=== PATIENT | female | born 1940 ===

== ENCOUNTER 2024-07-11 13:59 | Inpatient (IN) | payer MEDICARE, MEDICAID, SELFPAY ==
[2024-07-11] VITALS (12 sets, daily range): BP systolic 131–153; BP diastolic 48–70; PULSE 34–56; RESP 14–20; TEMP 37.6–38.8; O2SAT 88–99; BMI 17.1
--- NOTE | ~2024-07-11 | XR_ITS ---
EXAMINATION: XR CHEST CLINICAL INFORMATION: ams COMPARISON: None available. TECHNIQUE: Frontal view of the chest was obtained. FINDINGS: Poor inspiration. No consolidation, pleural effusion or pneumothorax. Cardiomediastinal silhouette demonstrates calcified plaque Arctic arch. Multilevel thoracic stenosis. Osteopenia versus cirrhosis. Cortical irregularity in the lateral aspect of the right second and sixth ribs likely old rib fractures. There is a degenerative changes in the right acromioclavicular joint. XR/XR chest 1V IMPRESSION: No acute airspace disease. Electronically signed by: Mauro Oneill MD 07/11/2024 03:44 PM EDT
--- NOTE | ~2024-07-11 | CT_ITS ---
CLINICAL HISTORY: fall CT cervical spine without contrast. COMPARISON: None FINDINGS: Rightward curvature of the lower cervical and upper thoracic spine. Vertebral body heights are maintained. Skull base and intracranial structures appear normal. Calcified plaque present at the carotid bulbs bilaterally. C2-C3: Facet joint arthrosis. Mild right neural foraminal narrowing. C3-C4: Uncovertebral joint hypertrophy. Facet joint arthrosis. Mild left neural foraminal narrowing. C4-C5: Uncovertebral joint hypertrophy. Facet joint arthrosis. Severe right and mild left neural foraminal narrowing. C5-C6: Fusion of the posterior elements. Mild left neural foraminal narrowing. C6-C7: Anterior marginal osteophytes. Facet joint arthrosis. Uncovertebral joint hypertrophy. Moderate left and mild right neural foraminal narrowing. IMPRESSION: 1. No evidence of acute injury to the cervical spine. This document has been electronically signed by: Benoit Aguilar MD on 07/11/2024 18:20:16
--- NOTE | ~2024-07-11 | CT_ITS ---
CLINICAL HISTORY: ams CT head without contrast. COMPARISON: None FINDINGS: The visualized paranasal sinuses are clear. The mastoid air cells are clear. No calvarial fracture. Atherosclerotic intracranial vasculature. No evidence for mass or mass effect. No intracranial hemorrhage or abnormal extra-axial fluid collection. Basal ganglia mineralization on the left. The ventricles are proportional with the degree of moderate global cerebral volume loss without evidence of hydrocephalus. Basilar cisterns are patent. There are periventricular areas of low attenuation compatible with moderate white matter small vessel disease. Posterior fossa appears unremarkable. IMPRESSION: 1. No acute intracranial findings. This document has been electronically signed by: Benoit Aguilar MD on 07/11/2024 18:15:06
--- NOTE | 2024-07-11 14:10 | ECG_ITS ---
Test Reason : ams Blood Pressure : */* mmHG Vent. Rate : 40 BPM Atrial Rate : 271 BPM P-R Int : * ms QRS Dur : 70 ms QT Int : 532 ms P-R-T Axes : 87 40 -63 degrees QTcB Int : 433 ms Atrial flutter with slow ventricular response cannot exclude old Septal infarct , age undetermined Abnormal ECG No previous ECGs available Referred By: Miguel Ángel Menezes Electronically Signed By: SIMON LEDESMA
--- NOTE | 2024-07-11 14:13 | ED.AMS ---
HPI - Altered Mental Status General Chief Complaint: Altered Mental Status Stated Complaint: PER LONG TERM AMS Time Seen by Provider: 07/11/24 14:07 Source: EMS Mode of arrival: EMS Limitations: altered mental status History of Present Illness HPI narrative: 83-year-old female past medical history of AFib on Eliquis altered mental status unable to follow commands or speak at baseline coming from a long term for failure to thrive not eating not drinking at the long term per the paperwork patient is a [place] does not have a family member to contact they are working about changing her code status was currently a full code. Patient unable to give history at baseline but is apparently worse today found to be bradycardic which is her baseline as well as periods of apnea per EMS. Patient came in being bagged by EMS on arrival patient is breathing on her own anymore from 12-27 breaths a minute but are shallow. Patient on the monitor is bradycardic to 45 blood pressure is stable MD complaint: altered mental status Related Data Allergies Allergy/AdvReac Type Severity Reaction Status Date / Time hydromorphone Allergy Unknown Verified 07/11/24 14:10 oxycodone Allergy Unknown Verified 07/11/24 14:10 roflumilast Allergy Unknown Verified 07/11/24 14:10 Review of Systems Review of Systems: Yes Unobtainable due to mental condition and Unobtainable due to mental status PMFSH Social History Social History Unable to assess alcohol history related to: Unable to respond Use of substances other than those prescribed or required for medical reasons: Unable to respond Advance Directives: Yes Advance Directives on File: Yes Advance Directives Date on File: 07/11/24 Do you have a plan to hurt others: No Plan Physical Exam ED Vital Signs: Vital Signs - 24 hr 07/11/24 14:06 07/11/24 14:27 07/11/24 14:45 Temperature 101.9 F H Pulse Rate 41 L 50 Respiratory Rate 14 16 Blood Pressure 151/66 H 149/59 H Pulse Oximetry 97 96 90 L Oxygen Delivery Method Room Air Room Air Room Air Oxygen Flow Rate 07/11/24 14:46 07/11/24 15:18 07/11/24 15:23 Temperature Pulse Rate 39 L 34 L Respiratory Rate 18 14 Blood Pressure 147/55 H 134/54 L Pulse Oximetry 97 97 96 Oxygen Delivery Method Nasal Cannula Nasal Cannula Nasal Cannula Oxygen Flow Rate 2 2 2 07/11/24 15:29 07/11/24 15:59 07/11/24 16:59 Temperature 99.6 F Pulse Rate 56 37 L 37 L Respiratory Rate 18 16 16 Blood Pressure 134/54 L 149/54 H 153/52 H Pulse Oximetry 97 97 98 Oxygen Delivery Method Nasal Cannula Nasal Cannula Nasal Cannula Oxygen Flow Rate 2 2 2 BMI result Body Mass Index 17.1 General: Thin minimally responsive only to painful stimuli which is close to baseline for the patient HEENT: Normocephalic atraumatic Neck: No signs of JVD, no masses no tenderness or lymphadenopathy Cardiovascular: Regular rate and rhythm Respiratory: Clear to auscultation bilaterally Abdomen: Soft nontender no masses Extremities: Normal pedal pulses no signs of edema Skin: Dry warm no rashes Back: No tenderness full ROM Course Course Course Narrative: Patient remained bradycardic did drop down to 39 was given 0.5 of atropine with good response into the 50s. Patient's blood pressure has been stable the entire time I did touch base with Dr. Card who agrees there was nothing emergent in the patient should be safe with the floors his blood pressures remained stable during the entire visit here labs still pending at this time Reevaluation(s) Reevaluation #1: Patient with hypernatremia on labs and labs kept asking for re-collect and we will admit. Reevaluation #2: Free water calculator wants 60 ml a hour of D5 free water. 60 mg which was ordered I did discuss the case with hospitalist as well as the ICU as the patient is stable otherwise and the bradycardia is chronic he felt the patient could go to the floor both in ever being that high is understandable if ICU has to. Admit Dr. Medina's happyD to admit if that is the case.Dr. Vallejo was consulted and we all agreed patient was safe for the floor. Medications Administered Generic Name Dose Route Start Last Admin Trade Name Freq PRN Reason Stop Dose Admin Sodium Chloride 1,000 mls @ 999 mls/hr 07/11/24 16:30 07/11/24 17:08 Ns IV 07/11/24 17:30 Not Given .Q1H1M JACQUE Dextrose 1,000 mls @ 60 mls/hr 07/11/24 17:00 07/11/24 17:14 D5w IVCONT 60 mls/hr .[id number] JACQUE Administration Discontinued Medications Generic Name Dose Route Start Last Admin Trade Name Veronika PRN Reason Stop Dose Admin Atropine Sulfate 0.5 mg 07/11/24 15:16 07/11/24 15:21 Atropine Sulfate 1 Mg/10 Ml Syringe IVPUSH 07/11/24 15:17 0.5 mg ONCE ONE Administration Ceftriaxone Sodium 1 gm 07/11/24 16:24 07/11/24 17:14 Ceftriaxone Sodium 1 Gm Vial IVPUSH 07/11/24 16:25 1 gm ONCE ONE Administration Sodium Chloride 1,000 mls @ 999 mls/hr 07/11/24 14:15 07/11/24 15:42 Ns IV 07/11/24 15:15 Infused .Q1H1M JACQUE Infusion Acetaminophen 1,000 mg in 100 mls @ 400 mls/hr 07/11/24 14:15 07/11/24 14:42 Ofirmev IV 07/11/24 14:29 Infused ONCE ONE Infusion Sodium Chloride 1,000 mls @ 999 mls/hr 07/11/24 15:45 07/11/24 17:00 Ns IV 07/11/24 16:45 Infused .Q1H1M JACQUE Infusion Medical Decision Making Medical Decision Making [facility] Narrative: Patient is on Xarelto I will send for CT head and neck patient is very altered concerned that has not been eating or drinking could have hypernatremia check labs EKG and reassess. Differential Diagnosis Differential Diagnoses: The differential diagnosis associated with the presentation includes Electrolyte abnormality dehydration hypernatremia COVID flu RSV intracranial hemorrhage Lab Data [facility] Lab Attestation statement: I reviewed the patient's lab results. 07/11/24 14:57 07/11/24 15:59 Labs: Lab Results 07/11/24 07/11/24 07/11/24 Range/Units 14:55 14:56 14:57 WBC 6.9 (4.8-10.8) X10*3/uL RBC 5.23 (4.20-5.50) X10*6/uL Hgb 16.8 H (12.0-16.0) g/dl Hct 52.7 H (37.0-47.0) % MCV 100.8 H (80.0-98.0) fL MCH 32.1 (27.0-33.0) pg MCHC 31.9 (31.0-35.0) g/dl RDW 14.1 (11.0-16.0) % Plt Count 115 L (160-400) X10*3/uL MPV 13.0 H (9.4-12.3) fL Immature Gran % (Auto) 0.4 (0.0-0.4) % Neut % (Auto) 75.4 H (45-73) % Lymph % (Auto) 15.9 L (20-40) % [place] % (Auto) 7.7 (2-11) % Eos % (Auto) 0.3 (0-4) % Baso % (Auto) 0.3 (0-2) % Lymph # (Auto) 1.1 L (1.2-4.9) X10*3/uL [place] # (Auto) 0.5 (0.1-1.2) X10*3/uL Eos # (Auto) 0.0 (0.0-0.4) X10*3/uL Baso # (Auto) 0.0 (0.0-0.2) X10*3/uL Abs Immat Gran (auto) 0.03 (0.00-0.03) X10*3/uL Absolute Neuts (auto) 5.2 (2.0-8.3) x10*3/uL Absolute Nucleated RBC 0.000 (0.0-0.012) X10*3/uL Nucleated RBC % (auto) 0.0 (0.0-0.2) /100WBC PT 13.6 H (10.9-12.4) SEC INR 1.2 H (0.9-1.1) APTT 22.0 L (26.0-36.8) SEC VBG pH (7.32-7.43) VBG pCO2 mmHg VBG pO2 mmHg VBG HCO3 (22-26) mmol/L VBG O2 Saturation % VBG Base Excess mmol/L Sodium (135-145) mmol/L Potassium (3.3-5.1) mmol/L Chloride (96-108) mmol/L Carbon Dioxide (22-29) mmol/L Anion Gap (12-20) BUN (9-16) mg/dL Creatinine (0.5-1.4) mg/dL Estim Creat Clear Calc Estimated GFR Random Glucose (60-115) mg/dL Lactic Acid (0.5-2.0) mmol/L Calcium (8.4-10.2) mg/dL Magnesium (1.6-2.6) mg/dL Total Bilirubin (0.0-1.0) mg/dL Direct Bilirubin (0.0-0.5) mg/dL AST (5-31) U/L ALT (0-31) U/L Total Creatine Kinase (26-140) U/L Troponin I High Sens (<3.5-17.0) ng/L Total Protein (6.5-8.0) g/dL Albumin (3.5-5.0) g/dL Lipase (8-78) U/L TSH Cancelled Urine Color Urine Appearance Urine pH (5.0-9.0) Ur Specific Elizabeth (1.005-1.025) Urine Protein (Neg-Trace) mg/dL Urine Glucose (UA) (Negative) mg/dL Urine Ketones (Negative) mg/dL Urine Blood (Negative) Urine Nitrite (Negative) Ur Leukocyte Esterase (Negative) Urine RBC (0-2) /HPF Urine WBC (0-5) /HPF Ur Squamous Epith Cells (0-2) /HPF Urine Bacteria (None Seen) Hyaline Casts (0-2) /LPF Influenza Type A (PCR) NEGATIVE (Negative) Influenza Type B (PCR) NEGATIVE (Negative) RSV RNA Qual (PCR) NEGATIVE (Negative) SARS-CoV-2 RNA (RT-PCR) NEGATIVE (Negative) Blood Type O Negative Antibody Screen NEGATIVE 07/11/24 07/11/24 07/11/24 Range/Units 15:07 15:59 16:11 WBC (4.8-10.8) X10*3/uL RBC (4.20-5.50) X10*6/uL Hgb (12.0-16.0) g/dl Hct (37.0-47.0) % MCV (80.0-98.0) fL MCH (27.0-33.0) pg MCHC (31.0-35.0) g/dl RDW (11.0-16.0) % Plt Count (160-400) X10*3/uL MPV (9.4-12.3) fL Immature Gran % (Auto) (0.0-0.4) % Neut % (Auto) (45-73) % Lymph % (Auto) (20-40) % [place] % (Auto) (2-11) % Eos % (Auto) (0-4) % Baso % (Auto) (0-2) % Lymph # (Auto) (1.2-4.9) X10*3/uL [place] # (Auto) (0.1-1.2) X10*3/uL Eos # (Auto) (0.0-0.4) X10*3/uL Baso # (Auto) (0.0-0.2) X10*3/uL Abs Immat Gran (auto) (0.00-0.03) X10*3/uL Absolute Neuts (auto) (2.0-8.3) x10*3/uL Absolute Nucleated RBC (0.0-0.012) X10*3/uL Nucleated RBC % (auto) (0.0-0.2) /100WBC PT (10.9-12.4) SEC INR (0.9-1.1) APTT (26.0-36.8) SEC VBG pH 7.51 H (7.32-7.43) VBG pCO2 25 mmHg VBG pO2 47 mmHg VBG HCO3 20 L (22-26) mmol/L VBG O2 Saturation 82.0 % VBG Base Excess -0.3 mmol/L Sodium 165 H* (135-145) mmol/L Potassium 4.8 (3.3-5.1) mmol/L Chloride 132 H (96-108) mmol/L Carbon Dioxide 22 (22-29) mmol/L Anion Gap 16 (12-20) BUN 58 H (9-16) mg/dL Creatinine 1.07 (0.5-1.4) mg/dL Estim Creat Clear Calc 26.3 Estimated GFR 49 Random Glucose 116 H (60-115) mg/dL Lactic Acid 1.6 (0.5-2.0) mmol/L Calcium 10.1 (8.4-10.2) mg/dL Magnesium 2.8 H (1.6-2.6) mg/dL Total Bilirubin 1.0 (0.0-1.0) mg/dL Direct Bilirubin 0.2 (0.0-0.5) mg/dL AST 79 H (5-31) U/L ALT 80 H (0-31) U/L Total Creatine Kinase 394 H (26-140) U/L Troponin I High Sens 39.5 H (<3.5-17.0) ng/L Total Protein 8.3 H (6.5-8.0) g/dL Albumin 3.9 (3.5-5.0) g/dL Lipase 37 (8-78) U/L TSH 0.56 Urine Color Yellow Urine Appearance Clear Urine pH 5.5 (5.0-9.0) Ur Specific Elizabeth >= 1.030 H (1.005-1.025) Urine Protein 100 (2+) H (Neg-Trace) mg/dL Urine Glucose (UA) Negative (Negative) mg/dL Urine Ketones Negative (Negative) mg/dL Urine Blood Small (1+) H (Negative) Urine Nitrite Positive H (Negative) Ur Leukocyte Esterase Small (1+) H (Negative) Urine RBC 11-20 H (0-2) /HPF Urine WBC 21-50 H (0-5) /HPF Ur Squamous Epith Cells 0-2 (0-2) /HPF Urine Bacteria 2+ (None Seen) Hyaline Casts 11-20 (0-2) /LPF Influenza Type A (PCR) (Negative) Influenza Type B (PCR) (Negative) RSV RNA Qual (PCR) (Negative) SARS-CoV-2 RNA (RT-PCR) (Negative) Blood Type Antibody Screen ABG Data Attestation ABG: I personally reviewed and interpreted this ABG as follows: Independent Interpretation I performed an independent interpretation of an: EKG and CT Scan Radiology Impression Discussion of test interpretation with radiology: I have reviewed the radiologist's reading. External Record Review Patient has no previous visits here Critical Care Time Critical Care Time Critical Care Time: Yes Total Critical Care Time: 90 Attestation: Patient altered mental status initially came in being bagged by EMS patient has not been apneic here has been bradycardic but blood pressure has been stable we did try atropine for the heart rate we consulted Cardiology the ICU and hospitalist. We calculated the free water deficit as well as the rate of correction of the hyponatremia and start the patient on D5 free water patient also was found to have UTI and started on antibiotics. Discharge Plan Discharge Clinical Impression: Altered mental status, Dementia, Acute hypernatremia, Acute UTI Patient Disposition: Admitted As Inpatient Print Language: [place]
[2024-07-11] MEDS: 0.9 % Sodium Chloride 1,000 ML 999 ML IV ×2 (14:27→15:42)
[2024-07-11] MEDS: Acetaminophen 1,000 MG/100 ML PIGGYBACK 400 MG IV (14:27)
[2024-07-11 15:06] LABS: MANUAL DIFF FLAG NO
[2024-07-11 15:11] LABS: VBG Base Excess -0.3 mmol/L; VBG HCO3 20 mmol/L (22-26); VBG pCO2 25 mmHg; VBG pH 7.51 (7.32-7.43); VBG pO2 47 mmHg
[2024-07-11 15:12] LABS: Venous Blood Gas Refer to POC result
[2024-07-11 15:14] LABS: INTERNATIONAL NORM RATIO 1.2 (0.9-1.1); Prothrombin Time 13.6 SEC (10.9-12.4)
[2024-07-11 15:17] LABS: Basophils Percent Auto 0.3 % (0-2); Eosinophils Percent Auto 0.3 % (0-4); Hematocrit 52.7 % (37.0-47.0); Hemoglobin 16.8 g/dl (12.0-16.0); Imm Gran Abs Auto 0.03 X10*3/uL (0.00-0.03); Imm Gran Pct Auto 0.4 % (0.0-0.4); Lymphocytes Absolute Auto 1.1 X10*3/uL (1.2-4.9); Lymphocytes Percent Auto 15.9 % (20-40); Mean Corpuscular HGB Conc 31.9 g/dl (31.0-35.0); Mean Corpuscular Hemoglobin 32.1 pg (27.0-33.0); Mean Corpuscular Volume 100.8 fL (80.0-98.0); Monocytes Absolute Auto 0.5 X10*3/uL (0.1-1.2); Monocytes Percent Auto 7.7 % (2-11); Neutrophils Absolute Auto 5.2 x10*3/uL (2.0-8.3); Neutrophils Percent Auto 75.4 % (45-73); Platelet Count 115 X10*3/uL (160-400); Red Blood Count 5.23 X10*6/uL (4.20-5.50); Red Cell Distribution Width 14.1 % (11.0-16.0); White Blood Count 6.9 X10*3/uL (4.8-10.8)
[2024-07-11] MEDS: Atropine Sulfate 1 MG/10 ML SYRINGE 0.5 MG IVPUSH (15:21)
--- NOTE | 2024-07-11 15:24 | PC.NURSE ---
pt remains to be bradycardic but HR continues to decrease to 30s at this time. HR noted to be 34-39bpm. provider notified/aware. medication administered per provider order. effectiveness pending. otherwise vss and up to date. pt remains on 2L via NC at this time. no sob/wob noted. respirations even/unlabored. plan of care ongoing.
--- NOTE | 2024-07-11 15:30 | PC.NURSE ---
HR noted to increase to 56bpm s/p medication administration but noted to immediately to decrease back to 34-38bpm. provider notified/aware.
[2024-07-11 15:51] LABS: Influenza A PCR NEGATIVE (Negative); Influenza B PCR NEGATIVE (Negative); Resp Syncy Virus RNA Qual PCR NEGATIVE (Negative); SARS COV2 PCR INHOUSE NEGATIVE (Negative)
[2024-07-11 16:01] LABS: TSH reflex Free T4 0.56 uIU/mL (0.32-4.0)
--- NOTE | 2024-07-11 16:15 | PC.NURSE ---
straight catheterization performed. 100ml of clear/dark yellow urine noted immediately post output. specimen obtained/sent to lab. pt tolerated well.
[2024-07-11 16:20] LABS: Appearance Urine Clear; Color Urine Yellow; Glucose Urine UA Negative (Negative); Leukocyte Esterase Urine Small (1+) (Negative); Nitrite Urine Positive (Negative); PH 5.5 (5.0-9.0); Specific Gravity - Urine >= 1.030 (1.005-1.025); UMIC TRIGGER UACC YES; Urine Blood Small (1+) (Negative); Urine Ketones Negative (Negative); Urine Protein 100 (2+) mg/dL (Neg-Trace)
[2024-07-11 16:21] LABS: Lactic Acid 1.6 mmol/L (0.5-2.0)
[2024-07-11 16:28] LABS: Troponin-I High Sensitivity 39.5 ng/L (<3.5-17.0)
[2024-07-11 16:37] LABS: Bacteria Urine 2+ (None Seen); Squamous Epithelial Cell Urine 0-2 /HPF (0-2); UACC Culture Trigger YES; WBC Urine 21-50 /HPF (0-5)
[2024-07-11 17:07] LABS: Alanine Aminotransferase 80 U/L (0-31); Albumin Level 3.9 g/dL (3.5-5.0); Anion Gap 16 (12-20); Aspartate Amino Transferase 79 U/L (5-31); Bilirubin Direct 0.2 mg/dL (0.0-0.5); Blood Urea Nitrogen 58 mg/dL (9-16); Calcium 10.1 mg/dL (8.4-10.2); Carbon Dioxide 22 mmol/L (22-29); Chloride 132 mmol/L (96-108); Creatinine Clr Calc Pharmacy 26.3; Estimated Glomerular Filt Rate 49; Glucose Random 116 mg/dL (60-115); Lipase 37 U/L (8-78); Magnesium 2.8 mg/dL (1.6-2.6); Potassium 4.8 mmol/L (3.3-5.1); Sodium 165 mmol/L (135-145); Total Protein 8.3 g/dL (6.5-8.0)
[2024-07-11] MEDS: cefTRIAXone sodium 1 GM VIAL IVPUSH (17:14)
[2024-07-11] MEDS: Dextrose 5 % 1,000 ML 60 ML IVCONT (17:14)
--- NOTE | 2024-07-11 17:14 | PC.NURSE ---
D5W infusing @ 60mls/hr at this time. pt remains responsive to physical stimuli only. nonresponsive to verbal stimuli. a-flutter/bradycardic on the special education instructor. HR between 35-39bpm. pt remains on 2L via NC. otherwise vss and up to date. pt remains in no apparent respiratory distress at this time. no sob/wob noted. respirations even/unlabored. plan of care ongoing. call buckley placed within reach.
[2024-07-11 17:35] LABS: Anion Gap 13 (12-20); Blood Urea Nitrogen 53 mg/dL (9-16); Calcium 8.4 mg/dL (8.4-10.2); Carbon Dioxide 18 mmol/L (22-29); Chloride 138 mmol/L (96-108); Creatinine Clr Calc Pharmacy 29.2; Estimated Glomerular Filt Rate 56; Glucose Random 104 mg/dL (60-115); Potassium 5.1 mmol/L (3.3-5.1); Sodium 164 mmol/L (135-145)
--- NOTE | 2024-07-11 17:40 | PC.NURSE ---
pt to CT at this time.
[2024-07-11 17:41] LABS: Alkaline Phosphatase 92 U/L (39-117)
--- NOTE | 2024-07-11 18:44 | P.HPHOSP_ITS ---
History of Present Illness Date of Service: 07/11/24 Attending physician on admission: Lesly Vallejo Chief Complaint: ams 83-year-old female with history of atrial fibrillation/flutter anticoagulated with Eliquis, hyperlipidemia, and dementia with mood disturbance presents to the ED from SNF due to poor p.o. intake. The patient has not been eating or drinking much per senior living staff. She has a guardianship patient and is currently full code. The patient is unable to provide any history but is arousable. Per EMS, the patient required bagging en route but has been breathing on her own but noted to have shallow breathing. She has been bradycardic in the ED in the 30s but blood pressures stable. Since arrival, vitals have otherwise been stable. She was noted to be 90% on room air and was placed on 2 L supplemental O2 via nasal cannula. There is no leukocytosis. Platelets are 115. Renal function consistent with CKD stage 3 with creatinine 0.96 and GFR 56. Sodium significantly elevated at 164, potassium 5.1, chloride 138, CO2 18 following 2 L normal saline. Sodium on arrival was 165. Subsequent VBG with pH 7.51, pCO2 25, HC03 20. AST 79, ALT 80, CPK 394. Initial troponin 39, repeat pending. TSH 0.56. UA with 1+ leukocytes, positive nitrites, 1+ blood, positive urinary sediment, 2+ protein and elevated specific gravity. Negative for COVID-19, RSV, influenza. Head CT negative for any acute intracranial abnormality. CT cervical spine negative for any acute injury. CXR unremarkable. In the ED, she received 0.5 mg atropine with transient improvement in heart rate to the 50s with rhythm noted to be atrial flutter. She was given 2 L normal saline which was changed to D5W following repeat sodium levels. She also received 1 g ceftriaxone for UTI as well as IV Tylenol. She will be admitted for further management of acute UTI with metabolic encephalopathy. Review of Systems 2 Review of Systems: Yes Unobtainable due to mental condition [facility] Medical History (Updated 07/11/24 @ 18:53 by CASSY Dudley) Hyperlipidemia Atrial fibrillation and flutter Dementia Social History Unable to assess alcohol history related to: Unable to respond Patient Tobacco Use Status: Tobacco use Unknown Use of substances other than those prescribed or required for medical reasons: Unable to respond Advance Directives: Yes Advance Directives on File: Yes Advance Directives Date on File: 07/11/24 Do you have a plan to hurt others: No Plan Nutrition Risks: Difficulty swallowing Meds Allergies Allergy/AdvReac Type Severity Reaction Status Date / Time hydromorphone Allergy Unknown Verified 07/11/24 14:10 oxycodone Allergy Unknown Verified 07/11/24 14:10 roflumilast Allergy Unknown Verified 07/11/24 14:10 Active Medications: Current Medications Acetaminophen (Acetaminophen 325 Mg Tablet) 650 mg PO Q6H PRN PRN Reason: Pain, Mild 1-3,fever,headache Calcium Carbonate (Calcium Carbonate 750 Mg Tab.Chew) 750 mg PO Q4H PRN PRN Reason: Heartburn Ceftriaxone Sodium (Ceftriaxone Sodium 1 Gm Vial) 1 gm IVPUSH Q24H [facility] Dextrose (D5w) 1,000 mls @ 60 mls/hr IVCONT .[id number] [facility] Last Admin: 07/11/24 17:14 Dose: 60 mls/hr Dextrose/Sodium Chloride (D51/2ns) 1,000 mls @ 80 mls/hr IVCONT .[id number] [facility] Last Admin: 07/11/24 17:45 Dose: Not Given Magnesium Hydroxide (Milk Of Magnesia 30 Ml Oral.Susp) 30 ml PO DAILY PRN PRN Reason: Constipation Melatonin (Melatonin 3 Mg Tablet) 6 mg PO BEDTIME PRN PRN Reason: Insomnia Sodium Chloride (0.9 % Sodium Chloride Flush 3 Ml Syringe) 3 ml IVFLUSH QSHIFT [facility] Home Medications ?Medication ?Instructions ?Recorded ?Confirmed ?Last Taken ?Type acetaminophen 650 mg 650 mg PO Q4H PRN Fever Greater 07/11/24 07/11/24 Unknown History tablet,extended release Then 100.0F apixaban 2.5 mg tablet (Eliquis) 2.5 mg PO BID 07/11/24 07/11/24 Unknown History atorvastatin 40 mg tablet 40 mg PO BEDTIME 07/11/24 07/11/24 Unknown History bisacodyl 10 mg rectal suppository 10 mg GA DAILY PRN Constipation 07/11/24 07/11/24 Unknown History coal tar 0.5 % shampoo 1 appl topical SA@0900 07/11/24 07/11/24 Unknown History diphenhydramine-zinc acetate 1 1 appl topical BID Itching 07/11/24 07/11/24 Unknown History %-0.1 % topical cream (Benadryl Itch Stopping) escitalopram oxalate 10 mg tablet 10 mg PO DAILY 07/11/24 07/11/24 Unknown History magnesium hydroxide 400 mg/5 mL 30 ml PO DAILY PRN Constipation 07/11/24 07/11/24 Unknown History oral suspension (Milk of Magnesia) melatonin 10 mg tablet 10 mg PO BEDTIME Dementia 07/11/24 07/11/24 Unknown History mineral oil-isopropyl myristat 1 appl topical DAILY 07/11/24 07/11/24 Unknown History lotion sodium phosphates 19 gram-7 118 ml GA DAILY PRN Constipation 07/11/24 07/11/24 Unknown History gram/118 mL enema (Fleet Enema) trazodone 50 mg tablet 25 mg PO BEDTIME 07/11/24 07/11/24 Unknown History Physical Exam 2 Vital Signs and Narrative: Vital Signs: Last Vital Signs Temp 99.6 F 07/11/24 15:59 Pulse 38 L 07/11/24 17:47 Resp 18 07/11/24 17:47 BP 133/53 L 07/11/24 17:47 Pulse Ox 99 07/11/24 17:47 O2 Del Method Nasal Cannula 07/11/24 17:47 O2 Flow Rate 2 07/11/24 17:47 BMI result Body Mass Index 17.1 Constitutional - somnolent but arousable, No apparent distress Eyes - PERRLA, EOMI Cardiovascular - S1S2, RRR, No edema Respiratory - Normal lung expansion, shallow breathing but no distress, CTA bilaterally Gastrointestinal - NT / ND; +BS; No rebound or guarding Extremities - no calf tenderness bilaterally, no swelling Skin - Warm/Dry Neurological - somnolent but arousable and disoriented Results Labs 07/11/24 14:57 07/11/24 16:59 Labs: Laboratory Results - last 24 hr 07/11/24 07/11/24 07/11/24 14:55 14:56 14:57 MCV 100.8 H MCH 32.1 MCHC 31.9 RDW 14.1 Plt Count 115 L MPV 13.0 H Immature Gran % (Auto) 0.4 Neut % (Auto) 75.4 H Lymph % (Auto) 15.9 L Hill % (Auto) 7.7 Eos % (Auto) 0.3 Baso % (Auto) 0.3 Lymph # (Auto) 1.1 L Hill # (Auto) 0.5 Eos # (Auto) 0.0 Baso # (Auto) 0.0 Abs Immat Gran (auto) 0.03 Absolute Neuts (auto) 5.2 Absolute Nucleated RBC 0.000 Nucleated RBC % (auto) 0.0 PT 13.6 H INR 1.2 H APTT 22.0 L VBG pH VBG pCO2 VBG pO2 VBG HCO3 VBG O2 Saturation VBG Base Excess Anion Gap Estim Creat Clear Calc Estimated GFR Random Glucose Lactic Acid Calcium Magnesium Total Bilirubin Direct Bilirubin AST ALT Alkaline Phosphatase Total Creatine Kinase Total Protein Albumin Lipase TSH Cancelled Urine Color Urine Appearance Urine pH Ur Specific [place] Urine Protein Urine Glucose (UA) Urine Ketones Urine Blood Urine Nitrite Ur Leukocyte Esterase Urine RBC Urine WBC Ur Squamous Epith Cells Urine Bacteria Hyaline Casts Influenza Type A (PCR) NEGATIVE Influenza Type B (PCR) NEGATIVE RSV RNA Qual (PCR) NEGATIVE SARS-CoV-2 RNA (RT-PCR) NEGATIVE Blood Type O Negative Antibody Screen NEGATIVE 07/11/24 07/11/24 07/11/24 15:07 15:59 16:11 MCV MCH MCHC RDW Plt Count MPV Immature Gran % (Auto) Neut % (Auto) Lymph % (Auto) Hill % (Auto) Eos % (Auto) Baso % (Auto) Lymph # (Auto) Hill # (Auto) Eos # (Auto) Baso # (Auto) Abs Immat Gran (auto) Absolute Neuts (auto) Absolute Nucleated RBC Nucleated RBC % (auto) PT INR APTT VBG pH 7.51 H VBG pCO2 25 VBG pO2 47 VBG HCO3 20 L VBG O2 Saturation 82.0 VBG Base Excess -0.3 Anion Gap 16 Estim Creat Clear Calc 26.3 Estimated GFR 49 Random Glucose 116 H Lactic Acid 1.6 Calcium 10.1 Magnesium 2.8 H Total Bilirubin 1.0 Direct Bilirubin 0.2 AST 79 H ALT 80 H Alkaline Phosphatase 92 Total Creatine Kinase 394 H Total Protein 8.3 H Albumin 3.9 Lipase 37 TSH 0.56 Urine Color Yellow Urine Appearance Clear Urine pH 5.5 Ur Specific [place] >= 1.030 H Urine Protein 100 (2+) H Urine Glucose (UA) Negative Urine Ketones Negative Urine Blood Small (1+) H Urine Nitrite Positive H Ur Leukocyte Esterase Small (1+) H Urine RBC 11-20 H Urine WBC 21-50 H Ur Squamous Epith Cells 0-2 Urine Bacteria 2+ Hyaline Casts 11-20 Influenza Type A (PCR) Influenza Type B (PCR) RSV RNA Qual (PCR) SARS-CoV-2 RNA (RT-PCR) Blood Type Antibody Screen 07/11/24 16:59 MCV MCH MCHC RDW Plt Count MPV Immature Gran % (Auto) Neut % (Auto) Lymph % (Auto) Hill % (Auto) Eos % (Auto) Baso % (Auto) Lymph # (Auto) Hill # (Auto) Eos # (Auto) Baso # (Auto) Abs Immat Gran (auto) Absolute Neuts (auto) Absolute Nucleated RBC Nucleated RBC % (auto) PT INR APTT VBG pH VBG pCO2 VBG pO2 VBG HCO3 VBG O2 Saturation VBG Base Excess Anion Gap 13 Estim Creat Clear Calc 29.2 Estimated GFR 56 Random Glucose 104 Lactic Acid Calcium 8.4 D Magnesium Total Bilirubin Direct Bilirubin AST ALT Alkaline Phosphatase Total Creatine Kinase Total Protein Albumin Lipase TSH Urine Color Urine Appearance Urine pH Ur Specific [place] Urine Protein Urine Glucose (UA) Urine Ketones Urine Blood Urine Nitrite Ur Leukocyte Esterase Urine RBC Urine WBC Ur Squamous Epith Cells Urine Bacteria Hyaline Casts Influenza Type A (PCR) Influenza Type B (PCR) RSV RNA Qual (PCR) SARS-CoV-2 RNA (RT-PCR) Blood Type Antibody Screen Imaging Radiologist's Impressions: Impressions Chest X-Ray 07/11/24 15:30 IMPRESSION: No acute airspace disease. Electronically signed by: Mauro Oneill MD 07/11/2024 03:44 PM EDT Assessment and Plan (1) Acute UTI: Status: Acute (2) Acute hypernatremia: Status: Acute (3) Altered mental status: Status: Acute Plan 83-year-old female with history of atrial fibrillation/flutter anticoagulated with Eliquis, hyperlipidemia, and dementia with mood disturbance admitted for further management of acute UTI with encephalopathy. # acute UTI with presumed metabolic encephalopathy -UA with 1+ leukocytes, positive nitrites, 1+ blood, positive urinary sediment -no leukocytosis or SIRS criteria, no sepsis/severe sepsis -IV ceftriaxone (initiated 07/11) -follow CBC, cultures # acute encephalopathy, presumed metabolic related to above -head CT without any acute intracranial abnormality -TSH within normal limits, ammonia level pending. VBG without any hypercapnia, no uremia -monitor mentation -keep NPO until mentation improves #acute hypernatremia -165-->164 -Given 2L IV NS in ED. Change to hypotonic fluids with D5 1/2 NS -nephrology consult # unspecified atrial fibrillation/flutter with bradycardia -not on any beta-blockers -monitor on telemetry -continue Eliquis for anticoagulation -cardiology consult # hyperlipidemia -continue statin # unspecified dementia with mood disorder -continue home meds -maintain sleep-wake cycle DVT prophylaxis-Eliquis Full code [facility] [phone] Patient requires inpatient stay at least 2 midnights due to acute UTI with metabolic encephalopathy requiring IV antibiotics with close monitoring of mental status as well as cardiac monitoring for significant bradycardia with expert consultation Quality Stroke Does the patient have a stroke diagnosis?: No VTE Prior VTE?: No VTE Risk Level:: Medical - moderate - high VTE Device Contraindication: Treatment Not Indicated VTE Drug Contraindication: N/A - Med Ordered
[2024-07-11 19:32] LABS: Free T4 (Free Thyroxine) 0.82 ng/dL (0.71-1.85)
[2024-07-11 19:48] LABS: Ammonia 64 umol/L (13-55)
[2024-07-11 20:07] LABS: Troponin-I High Sensitivity 76.1 ng/L (<3.5-17.0)
--- NOTE | 2024-07-11 20:20 | PHA.MEDREC ---
Addendum entered by Dayna Jha RPh 07/11/24 20:56: [facility] reviewed Original Note: Pharmacy Consult ? Medication Reconciliation Pharmacy has completed the medication reconciliation. Utilized med list from [facility].
[2024-07-11 21:46] LABS: Sodium 162 mmol/L (135-145)
[2024-07-12] VITALS (7 sets, daily range): BP systolic 124–155; BP diastolic 54–73; PULSE 42–52; RESP 9–18; TEMP 36.3–37.9; O2SAT 93–98; BMI 22.2
[2024-07-12 01:09] LABS: Sodium 164 mmol/L (135-145)
--- NOTE | 2024-07-12 03:35 | PC.NURSE ---
PT incontinent of urine. Pericare provided, pt repositioned. PT made state you cant do that now . Otherwise pt minimally responsive.
--- NOTE | 2024-07-12 05:44 | PC.NURSE ---
Physical held d5w 1/2 NS, and ordered to continue d5 until next BMP.
--- NOTE | 2024-07-12 07:00 | CA_ITS ---
Transthoracic Echocardiogram Patient (Last, First, Middle): Sabrina Lugo, Gender: Female Date of : 1940 Age: 83 Procedure Date: 07/12/2024 Procedure Type: Transthoracic E[place]ocardiogram [place] [facility] [place]: 154.94 cm Weight: 40.82 kg BSA: 1.35 m2 Heart Rate: 47 bpm BP: 133 / 54 mmHg Bellhop: CARLOS Referring MD: Piotr Card MD Symptoms: Atrial fibrillation Study Quality: Adequate ECG Rhythm: Atrial Fibrillation Conclusions: - The left ventricular systolic function is normal. The calculated ejection fraction is 64% by biplane method. - The left atrium is severely dilated. - No obvious valvular pathology seen on this study. - There is mild dilatation of the ascending aorta measuring 4.10 cm. Findings Left Ventricle Normal left ventricular cavity size. The left ventricular systolic function is normal. The calculated ejection fraction is 64% by biplane method. There is no evidence of regional wall motion abnormalities. Diastolic function is indeterminate on the basis of available data. There is moderate septal asymmetric hypertrophy. Right Ventricle Normal right ventricular cavity size and systolic function. Atria The left atrium is severely dilated. The right atrium is normal in size. Aortic Valve There is a normal trileaflet aortic valve. There is mild calcification of the aortic valve. There is no aortic valve stenosis. There is mild aortic valve regurgitation. Mitral Valve The mitral valve appears normal. There is mild mitral valve regurgitation. There is no mitral valve stenosis. Pulmonic Valve There is mild to moderate pulmonic valve regurgitation. Tricuspid Valve Normal tricuspid valve structure. There is mild tricuspid valve regurgitation. Mild pulmonary hypertension is present. Great Vessels There is mild dilatation of the ascending aorta measuring 4.10 cm. Venous The inferior vena cava is normal in size and collapses greater than 50% with inspiration. Pericardium/Pleural There is no evidence of pericardial effusion. Prior Study Comparison No prior study available for comparison. Recommendations, Care & Conclusions No obvious valvular pathology seen on this study. Measurements 2D Linear Measurements IVSd: 1.40 0.6-0.9/0.6-1.0 cm LVIDd: 4.36 3.9-5.3/4.2-5.9 cm LVIDd Index: 3.23 2.4-3.2/2.2-3.1 cm/m2 LVIDs: 2.60 2.0-3.6 cm LVPWd: 0.91 0.7-1.1 cm LA Diam: 4.70 2.7-3.8/3.0-4.0 cm LAIDs Index: 3.48 1.5-2.3 cm/m2 LV Mass: 222.69 67-162/88-224 g LV Mass Index: 164.96 43-95/49-115 g/m2 LVOT Diam: 2.00 3.0+(-)1.3 cm 2D Systolic Function EF 4C: 69.20 >55% EF 2C: 55.70 >55% EF BiP: 64.00 >55% Mitral Valve MV Pk E: 0.86 MV Decel Time: 173.00 E'Lateral: 8.70 E'Medial: 5.87 E/E' Med: 14.60 E/E' Lat: 9.90 PHT: 51.00 MVA PHT: 4.31 Decel [place]: 4.95 Aortic Valve AoV Pk Bert[place]: 1.43 AoV Mn Bert[place]: 0.88 AoV VTI: 0.29 AoV Pk Grad: 8.00 Aov Mn Grad: 4.00 GUERA Cont.VTI: 2.19 AI Pk [place]: 4.19 AI [place]: 1.55 LVOT LVOT Pk Bertin: 1.12 LVOT Mn [place]: 0.62 LVOT VTI: 0.20 LVOT Pk Grad: 5.00 LVOT Mn Grad: 2.00 LVOT Diam: 2.00 LVOT Area: 3.14 Diastolic Function MV Pk E: 0.86 E'Medial: 5.87 E/E' Med: 14.60 E' Laterial: 8.70 E/E' Lat: 9.90 Right Ventricle TAPSE (mm): 23.00 TVS' [place]: 13.10 Tricuspid Valve TR Pk [place]: 3.02 TR Pk Grad: 36.00 RA Press: 3.00 RVSP: 39.00 Great Vessels Aorta Sinus of Valsalva: 3.40 2.0-3.[address] [place]: 3.00 1.7-3.4 cm Ao Asc: 4.10 2.1-3.4 cm Updated in Other Vendor System with Status of Final Piotr Card MD electronically signed on 07/12/2024 11:11:52 AM with status of Final
[2024-07-12] MEDS: Dextrose 5 % 1,000 ML 80 ML IVCONT ×2 (07:34→20:28)
[2024-07-12 08:47] LABS: MANUAL DIFF FLAG NO
[2024-07-12 08:48] LABS: Basophils Percent Auto 0.3 % (0-2); Eosinophils Percent Auto 0.5 % (0-4); Hematocrit 32.7 % (37.0-47.0); Hemoglobin 9.6 g/dl (12.0-16.0); Imm Gran Abs Auto 0.02 X10*3/uL (0.00-0.03); Imm Gran Pct Auto 0.3 % (0.0-0.4); Lymphocytes Percent Auto 15.4 % (20-40); Mean Corpuscular HGB Conc 29.4 g/dl (31.0-35.0); Mean Corpuscular Hemoglobin 32.3 pg (27.0-33.0); Mean Platelet Volume 13.1 fL (9.4-12.3); Monocytes Absolute Auto 0.5 X10*3/uL (0.1-1.2); Monocytes Percent Auto 7.7 % (2-11); Neutrophils Absolute Auto 4.7 x10*3/uL (2.0-8.3); Neutrophils Percent Auto 75.8 % (45-73); Red Blood Count 2.97 X10*6/uL (4.20-5.50); Red Cell Distribution Width 14.1 % (11.0-16.0); White Blood Count 6.2 X10*3/uL (4.8-10.8)
[2024-07-12 08:49] LABS: Mean Corpuscular Volume 110.1 fL (80.0-98.0); Platelet Count 70 X10*3/uL (160-400)
[2024-07-12 08:53] LABS: Anion Gap 11 (12-20); Blood Urea Nitrogen 40 mg/dL (9-16); Calcium 8.4 mg/dL (8.4-10.2); Carbon Dioxide 20 mmol/L (22-29); Chloride 132 mmol/L (96-108); Creatinine Clr Calc Pharmacy 41.3; Estimated Glomerular Filt Rate > 60; Glucose Random 135 mg/dL (60-115); Potassium 4.1 mmol/L (3.3-5.1); Sodium 159 mmol/L (135-145)
--- NOTE | 2024-07-12 09:13 | P.PNIM_ITS ---
Subjective Subjective Date of Service: 07/12/24 Interval History: Is awake but not answering questions and not following commands. Review of Systems Review of Systems: Yes Unobtainable due to mental status Physical Exam 2 Vital Signs: Vital Signs: Last Vital Signs Temp 99.8 F 07/12/24 06:17 Pulse 46 L 07/12/24 06:17 Resp 12 07/12/24 06:17 BP 133/54 L 07/12/24 06:17 Pulse Ox 98 07/12/24 06:17 O2 Del Method Room Air 07/12/24 06:17 O2 Flow Rate 2 07/11/24 19:51 BMI result Body Mass Index 17.1 Const: Other: Elderly female lying in bed in no distress Awake but non conversational and not responding to commands S1-S2 heard No wheezing or crackles heard No tenderness upon abdominal examination No pedal edema Objective Data Active Medications Acetaminophen (Acetaminophen 325 Mg Tablet) 650 mg PO Q6H PRN PRN Reason: Pain, Mild 1-3,fever,headache Calcium Carbonate (Calcium Carbonate 750 Mg Tab.Chew) 750 mg PO Q4H PRN PRN Reason: Heartburn Ceftriaxone Sodium (Ceftriaxone Sodium 1 Gm Vial) 1 gm IVPUSH Q24H [facility] Dextrose (D5w) 1,000 mls @ 80 mls/hr IVCONT .[id number] [facility] Last Admin: 07/12/24 07:34 Dose: 80 mls/hr Documented By: PAULA Magnesium Hydroxide (Milk Of Magnesia 30 Ml Oral.Susp) 30 ml PO DAILY PRN PRN Reason: Constipation Melatonin (Melatonin 3 Mg Tablet) 6 mg PO BEDTIME PRN PRN Reason: Insomnia Sodium Chloride (0.9 % Sodium Chloride Flush 3 Ml Syringe) 3 ml IVFLUSH QSHIFT [facility] Last Admin: 07/12/24 08:45 Dose: Not Given Documented By: PAULA Non-Admin Reason: IV Running Labs 07/12/24 08:39 07/12/24 08:00 Labs: Laboratory Results - last 24 hr 07/11/24 07/11/24 07/11/24 14:55 14:56 14:57 MCV 100.8 H MCH 32.1 MCHC 31.9 RDW 14.1 Plt Count 115 L MPV 13.0 H Immature Gran % (Auto) 0.4 Neut % (Auto) 75.4 H Lymph % (Auto) 15.9 L [place] % (Auto) 7.7 Eos % (Auto) 0.3 Baso % (Auto) 0.3 Lymph # (Auto) 1.1 L [place] # (Auto) 0.5 Eos # (Auto) 0.0 Baso # (Auto) 0.0 Abs Immat Gran (auto) 0.03 Absolute Neuts (auto) 5.2 Absolute Nucleated RBC 0.000 Nucleated RBC % (auto) 0.0 PT 13.6 H INR 1.2 H APTT 22.0 L VBG pH VBG pCO2 VBG pO2 VBG HCO3 VBG O2 Saturation VBG Base Excess Anion Gap Estim Creat Clear Calc Estimated GFR Random Glucose Lactic Acid Calcium Magnesium Total Bilirubin Direct Bilirubin AST ALT Alkaline Phosphatase Ammonia Total Creatine Kinase Total Protein Albumin Lipase TSH Cancelled Free T4 Urine Color Urine Appearance Urine pH Ur Specific [place] Urine Protein Urine Glucose (UA) Urine Ketones Urine Blood Urine Nitrite Ur Leukocyte Esterase Urine RBC Urine WBC Ur Squamous Epith Cells Urine Bacteria Hyaline Casts Influenza Type A (PCR) NEGATIVE Influenza Type B (PCR) NEGATIVE RSV RNA Qual (PCR) NEGATIVE SARS-CoV-2 RNA (RT-PCR) NEGATIVE Blood Type O Negative Antibody Screen NEGATIVE 07/11/24 07/11/24 07/11/24 15:07 15:59 16:11 MCV MCH MCHC RDW Plt Count MPV Immature Gran % (Auto) Neut % (Auto) Lymph % (Auto) [place] % (Auto) Eos % (Auto) Baso % (Auto) Lymph # (Auto) [place] # (Auto) Eos # (Auto) Baso # (Auto) Abs Immat Gran (auto) Absolute Neuts (auto) Absolute Nucleated RBC Nucleated RBC % (auto) PT INR APTT VBG pH 7.51 H VBG pCO2 25 VBG pO2 47 VBG HCO3 20 L VBG O2 Saturation 82.0 VBG Base Excess -0.3 Anion Gap 16 Estim Creat Clear Calc 26.3 Estimated GFR 49 Random Glucose 116 H Lactic Acid 1.6 Calcium 10.1 Magnesium 2.8 H Total Bilirubin 1.0 Direct Bilirubin 0.2 AST 79 H ALT 80 H Alkaline Phosphatase 92 Ammonia Total Creatine Kinase 394 H Total Protein 8.3 H Albumin 3.9 Lipase 37 TSH 0.56 Free T4 0.82 Urine Color Yellow Urine Appearance Clear Urine pH 5.5 Ur Specific [place] >= 1.030 H Urine Protein 100 (2+) H Urine Glucose (UA) Negative Urine Ketones Negative Urine Blood Small (1+) H Urine Nitrite Positive H Ur Leukocyte Esterase Small (1+) H Urine RBC 11-20 H Urine WBC 21-50 H Ur Squamous Epith Cells 0-2 Urine Bacteria 2+ Hyaline Casts 11-20 Influenza Type A (PCR) Influenza Type B (PCR) RSV RNA Qual (PCR) SARS-CoV-2 RNA (RT-PCR) Blood Type Antibody Screen 07/11/24 07/11/24 07/12/24 16:59 19:29 08:00 MCV MCH MCHC RDW Plt Count MPV Immature Gran % (Auto) Neut % (Auto) Lymph % (Auto) [place] % (Auto) Eos % (Auto) Baso % (Auto) Lymph # (Auto) [place] # (Auto) Eos # (Auto) Baso # (Auto) Abs Immat Gran (auto) Absolute Neuts (auto) Absolute Nucleated RBC Nucleated RBC % (auto) PT INR APTT VBG pH VBG pCO2 VBG pO2 VBG HCO3 VBG O2 Saturation VBG Base Excess Anion Gap 13 11 L Estim Creat Clear Calc 29.2 41.3 Estimated GFR 56 > 60 Random Glucose 104 135 H Lactic Acid Calcium 8.4 D 8.4 Magnesium Total Bilirubin Direct Bilirubin AST ALT Alkaline Phosphatase Ammonia 64 H Total Creatine Kinase Total Protein Albumin Lipase TSH Free T4 Urine Color Urine Appearance Urine pH Ur Specific [place] Urine Protein Urine Glucose (UA) Urine Ketones Urine Blood Urine Nitrite Ur Leukocyte Esterase Urine RBC Urine WBC Ur Squamous Epith Cells Urine Bacteria Hyaline Casts Influenza Type A (PCR) Influenza Type B (PCR) RSV RNA Qual (PCR) SARS-CoV-2 RNA (RT-PCR) Blood Type Antibody Screen 07/12/24 08:39 MCV 110.1 H D MCH 32.3 MCHC 29.4 L RDW 14.1 Plt Count 70 L D MPV 13.1 H Immature Gran % (Auto) 0.3 Neut % (Auto) 75.8 H Lymph % (Auto) 15.4 L [place] % (Auto) 7.7 Eos % (Auto) 0.5 Baso % (Auto) 0.3 Lymph # (Auto) 1.0 L [place] # (Auto) 0.5 Eos # (Auto) 0.0 Baso # (Auto) 0.0 Abs Immat Gran (auto) 0.02 Absolute Neuts (auto) 4.7 Absolute Nucleated RBC 0.000 Nucleated RBC % (auto) 0.0 PT INR APTT VBG pH VBG pCO2 VBG pO2 VBG HCO3 VBG O2 Saturation VBG Base Excess Anion Gap Estim Creat Clear Calc Estimated GFR Random Glucose Lactic Acid Calcium Magnesium Total Bilirubin Direct Bilirubin AST ALT Alkaline Phosphatase Ammonia Total Creatine Kinase Total Protein Albumin Lipase TSH Free T4 Urine Color Urine Appearance Urine pH Ur Specific [place] Urine Protein Urine Glucose (UA) Urine Ketones Urine Blood Urine Nitrite Ur Leukocyte Esterase Urine RBC Urine WBC Ur Squamous Epith Cells Urine Bacteria Hyaline Casts Influenza Type A (PCR) Influenza Type B (PCR) RSV RNA Qual (PCR) SARS-CoV-2 RNA (RT-PCR) Blood Type Antibody Screen Assessment and Plan (1) Acute UTI: Status: Acute (2) Acute hypernatremia: Status: Acute (3) Acute metabolic encephalopathy: Status: Acute Plan 83-year-old female with history of atrial fibrillation/flutter anticoagulated with Eliquis, hyperlipidemia, and dementia with mood disturbance admitted for further management of acute UTI with encephalopathy. # Acute metabolic encephalopathy due to UTI + hypernatremia -IV ceftriaxone (initiated 07/11) -follow CBC, urine culture -keep NPO until mentation improves -sodium improving. Will change 1/2NS to D5W -nephrology consult # unspecified atrial fibrillation/flutter with bradycardia -not on any beta-blockers -monitor on telemetry -change eliqiuis to lovenox (1mg/kg daily as thrombocytopenia with plt <100k and increased bleeding risk as age>75) until mentation improves -cardiology consult # hyperlipidemia -hold statin # unspecified dementia with mood disorder -hold home meds -maintain sleep-wake cycle # macrocytic anemia -at baseline -Hb likely concentrated on admission due to IVVD -obtain folate and b12 # thrombocytopenia -?chronic. noted drop likely due to infection DVT prophylaxis-Lovenox Full code Guardian- [facility] [phone] Reason for continued hospitalization: acute UTI with metabolic encephalopathy requiring IV antibiotics with close monitoring of mental status as well as cardiac monitoring for significant bradycardia with expert consultation Quality Stroke Does the patient have a stroke diagnosis?: No VTE Prior VTE?: No VTE Risk Level:: Medical - moderate - high VTE Device Contraindication: Treatment Not Indicated VTE Drug Contraindication: N/A - Med Ordered
--- NOTE | 2024-07-12 09:18 | MHC.CM.PN ---
CM left a detailed message for Patient's Guardian/[facility] [place] @ [phone], addressing the IMM (original will be mailed certified letter to Guardian and a copy will be placed on the chart). Patient is a LTC Resident and [facility] bed hold @ [facility] and the goal is for her to return to LTC at time of dc, via BLS. REBECCA has initiated and will follow for dc planning.
--- NOTE | 2024-07-12 09:28 | PM.CNCAR ---
History of Present Illness History of Present Illness Date of Service: 07/12/24 Chief complaint: ams, uti, bradycardia Narrative: This is a cardiology consultation regarding bradycardia. Patient is nonverbal and not able to give any information whatsoever. It appears that she has a history of atrial fibrillation/flutter on Eliquis. Not on any rate control drugs. Has dementia. Came from sniff because of poor oral intake. She has a guardianship and full code. No meaningful history. Since arrival to the ER, she has been bradycardic but with stable blood pressures. Markedly abnormal labs with very high sodium. Borderline troponin elevation. She is being treated for UTI. It seems that she got some atropine and there was a transient improvement heart rate. We are asked to address the bradycardia component. Review of Systems Review of Systems: Unable to obtain review of systems because of patient's mental status. [facility] Past Medical History Medical History (Updated 07/12/24 @ 09:32 by Piotr Card MD) Hyperlipidemia Atrial fibrillation and flutter Dementia Family History Pertinent family history: Unable to obtain. Nonverbal. Social History Social History Unable to assess alcohol history related to: Unable to respond Patient Tobacco Use Status: Tobacco use Unknown Use of substances other than those prescribed or required for medical reasons: Unable to respond Advance Directives: Yes Advance Directives on File: Yes Advance Directives Date on File: 07/11/24 Do you have a plan to hurt others: No Plan Nutrition Risks: Difficulty swallowing service: No Meds Allergies Allergy/AdvReac Type Severity Reaction Status Date / Time hydromorphone Allergy Unknown Verified 07/11/24 14:10 oxycodone Allergy Unknown Verified 07/11/24 14:10 roflumilast Allergy Unknown Verified 07/11/24 14:10 Active Medications: Current Medications Acetaminophen (Acetaminophen 325 Mg Tablet) 650 mg PO Q6H PRN PRN Reason: Pain, Mild 1-3,fever,headache Calcium Carbonate (Calcium Carbonate 750 Mg Tab.Chew) 750 mg PO Q4H PRN PRN Reason: Heartburn Ceftriaxone Sodium (Ceftriaxone Sodium 1 Gm Vial) 1 gm IVPUSH Q24H [facility] Enoxaparin Sodium (Enoxaparin Sodium 40 Mg/0.4 Ml Syringe) 40 mg SUBCUT Q24H [facility] Dextrose (D5w) 1,000 mls @ 80 mls/hr IVCONT .[id number] [facility] Last Admin: 07/12/24 07:34 Dose: 80 mls/hr Magnesium Hydroxide (Milk Of Magnesia 30 Ml Oral.Susp) 30 ml PO DAILY PRN PRN Reason: Constipation Melatonin (Melatonin 3 Mg Tablet) 6 mg PO BEDTIME PRN PRN Reason: Insomnia Sodium Chloride (0.9 % Sodium Chloride Flush 3 Ml Syringe) 3 ml IVFLUSH QSHIFT [facility] Last Admin: 07/12/24 08:45 Dose: Not Given Home Medications ?Medication ?Instructions ?Recorded ?Confirmed ?Last Taken ?Type acetaminophen 650 mg 650 mg PO Q4H PRN Fever Greater 07/11/24 07/11/24 Unknown History tablet,extended release Then 100.0F apixaban 2.5 mg tablet (Eliquis) 2.5 mg PO BID 07/11/24 07/11/24 Unknown History atorvastatin 40 mg tablet 40 mg PO BEDTIME 07/11/24 07/11/24 Unknown History bisacodyl 10 mg rectal suppository 10 mg [place] DAILY PRN Constipation 07/11/24 07/11/24 Unknown History coal tar 0.5 % shampoo 1 appl topical SA@0900 07/11/24 07/11/24 Unknown History diphenhydramine-zinc acetate 1 1 appl topical BID Itching 07/11/24 07/11/24 Unknown History %-0.1 % topical cream (Benadryl Itch Stopping) escitalopram oxalate 10 mg tablet 10 mg PO DAILY 07/11/24 07/11/24 Unknown History magnesium hydroxide 400 mg/5 mL 30 ml PO DAILY PRN Constipation 07/11/24 07/11/24 Unknown History oral suspension (Milk of Magnesia) melatonin 10 mg tablet 10 mg PO BEDTIME Dementia 07/11/24 07/11/24 Unknown History mineral oil-isopropyl myristat 1 appl topical DAILY 07/11/24 07/11/24 Unknown History lotion sodium phosphates 19 gram-7 118 ml [place] DAILY PRN Constipation 07/11/24 07/11/24 Unknown History gram/118 mL enema (Fleet Enema) trazodone 50 mg tablet 25 mg PO BEDTIME 07/11/24 07/11/24 Unknown History Physical Exam Vital Signs: Vital Signs: Last Vital Signs Temp 99.8 F 07/12/24 06:17 Pulse 46 L 07/12/24 06:17 Resp 12 07/12/24 06:17 BP 133/54 L 07/12/24 06:17 Pulse Ox 98 07/12/24 06:17 O2 Del Method Room Air 07/12/24 06:17 O2 Flow Rate 2 07/11/24 19:51 BMI result Body Mass Index 17.1 Const: General: ill appearing and lethargic Orientation/consciousness: No patient oriented x3 and lethargic HEENT: Other: Unremarkable Head: Yes normal to inspection Neck: Neck: Yes normal visual inspection Chest: Chest palpation & inspection: normal inspection of the chest Resp: Auscultation: clear to auscultation bilaterally Cardio: Palpation: normal PMI Heart sounds: S1 normal heart sound present, S2 normal heart sound present, no gallops, no murmurs and no rubs GI: Palpation (GI): Soft to palpation Back/Spine/Pelvis: Other: unremarkable Skin: General skin exam: no rashes or lesions noted Neuro: General: No patient oriented x3 Extrem: General: Yes normal to inspection Psych: Mental Status: mental status grossly abnormal Objective Labs and Meds 07/12/24 08:39 07/12/24 08:00 Lab results: Laboratory Results - last 24 hr 07/11/24 07/11/24 07/11/24 14:55 14:56 14:57 WBC 6.9 RBC 5.23 Hgb 16.8 H Hct 52.7 H MCV 100.8 H MCH 32.1 MCHC 31.9 RDW 14.1 Plt Count 115 L MPV 13.0 H Immature Gran % (Auto) 0.4 Neut % (Auto) 75.4 H Lymph % (Auto) 15.9 L [place] % (Auto) 7.7 Eos % (Auto) 0.3 Baso % (Auto) 0.3 Lymph # (Auto) 1.1 L [place] # (Auto) 0.5 Eos # (Auto) 0.0 Baso # (Auto) 0.0 Abs Immat Gran (auto) 0.03 Absolute Neuts (auto) 5.2 Absolute Nucleated RBC 0.000 Nucleated RBC % (auto) 0.0 PT 13.6 H INR 1.2 H APTT 22.0 L VBG pH VBG pCO2 VBG pO2 VBG HCO3 VBG O2 Saturation VBG Base Excess Sodium Potassium Chloride Carbon Dioxide Anion Gap BUN Creatinine Estim Creat Clear Calc Estimated GFR Random Glucose Lactic Acid Calcium Magnesium Total Bilirubin Direct Bilirubin AST ALT Alkaline Phosphatase Ammonia Total Creatine Kinase Troponin I High Sens Total Protein Albumin Lipase TSH Cancelled Free T4 Urine Color Urine Appearance Urine pH Ur Specific [place] Urine Protein Urine Glucose (UA) Urine Ketones Urine Blood Urine Nitrite Ur Leukocyte Esterase Urine RBC Urine WBC Ur Squamous Epith Cells Urine Bacteria Hyaline Casts Influenza Type A (PCR) NEGATIVE Influenza Type B (PCR) NEGATIVE RSV RNA Qual (PCR) NEGATIVE SARS-CoV-2 RNA (RT-PCR) NEGATIVE Blood Type O Negative Antibody Screen NEGATIVE 07/11/24 07/11/24 07/11/24 15:07 15:59 16:11 WBC RBC Hgb Hct MCV MCH MCHC RDW Plt Count MPV Immature Gran % (Auto) Neut % (Auto) Lymph % (Auto) [place] % (Auto) Eos % (Auto) Baso % (Auto) Lymph # (Auto) [place] # (Auto) Eos # (Auto) Baso # (Auto) Abs Immat Gran (auto) Absolute Neuts (auto) Absolute Nucleated RBC Nucleated RBC % (auto) PT INR APTT VBG pH 7.51 H VBG pCO2 25 VBG pO2 47 VBG HCO3 20 L VBG O2 Saturation 82.0 VBG Base Excess -0.3 Sodium 165 H* Potassium 4.8 Chloride 132 H Carbon Dioxide 22 Anion Gap 16 BUN 58 H Creatinine 1.07 Estim Creat Clear Calc 26.3 Estimated GFR 49 Random Glucose 116 H Lactic Acid 1.6 Calcium 10.1 Magnesium 2.8 H Total Bilirubin 1.0 Direct Bilirubin 0.2 AST 79 H ALT 80 H Alkaline Phosphatase 92 Ammonia Total Creatine Kinase 394 H Troponin I High Sens 39.5 H Total Protein 8.3 H Albumin 3.9 Lipase 37 TSH 0.56 Free T4 0.82 Urine Color Yellow Urine Appearance Clear Urine pH 5.5 Ur Specific [place] >= 1.030 H Urine Protein 100 (2+) H Urine Glucose (UA) Negative Urine Ketones Negative Urine Blood Small (1+) H Urine Nitrite Positive H Ur Leukocyte Esterase Small (1+) H Urine RBC 11-20 H Urine WBC 21-50 H Ur Squamous Epith Cells 0-2 Urine Bacteria 2+ Hyaline Casts 11-20 Influenza Type A (PCR) Influenza Type B (PCR) RSV RNA Qual (PCR) SARS-CoV-2 RNA (RT-PCR) Blood Type Antibody Screen 07/11/24 07/11/24 07/11/24 16:59 19:29 21:05 WBC RBC Hgb Hct MCV MCH MCHC RDW Plt Count MPV Immature Gran % (Auto) Neut % (Auto) Lymph % (Auto) [place] % (Auto) Eos % (Auto) Baso % (Auto) Lymph # (Auto) [place] # (Auto) Eos # (Auto) Baso # (Auto) Abs Immat Gran (auto) Absolute Neuts (auto) Absolute Nucleated RBC Nucleated RBC % (auto) PT INR APTT VBG pH VBG pCO2 VBG pO2 VBG HCO3 VBG O2 Saturation VBG Base Excess Sodium 164 H* 162 H* Potassium 5.1 Chloride 138 H Carbon Dioxide 18 L Anion Gap 13 BUN 53 H Creatinine 0.96 Estim Creat Clear Calc 29.2 Estimated GFR 56 Random Glucose 104 Lactic Acid Calcium 8.4 D Magnesium Total Bilirubin Direct Bilirubin AST ALT Alkaline Phosphatase Ammonia 64 H Total Creatine Kinase Troponin I High Sens 76.1 H* D Total Protein Albumin Lipase TSH Free T4 Urine Color Urine Appearance Urine pH Ur Specific [place]bh [place] Urine Protein Urine Glucose (UA) Urine Ketones Urine Blood Urine Nitrite Ur Leukocyte Esterase Urine RBC Urine WBC Ur Squamous Epith Cells Urine Bacteria Hyaline Casts Influenza Type A (PCR) Influenza Type B (PCR) RSV RNA Qual (PCR) SARS-CoV-2 RNA (RT-PCR) Blood Type Antibody Screen 07/12/24 07/12/24 07/12/24 00:35 08:00 08:00 WBC RBC Hgb Hct MCV MCH MCHC RDW Plt Count MPV Immature Gran % (Auto) Neut % (Auto) Lymph % (Auto) [place] % (Auto) Eos % (Auto) Baso % (Auto) Lymph # (Auto) [place] # (Auto) Eos # (Auto) Baso # (Auto) Abs Immat Gran (auto) Absolute Neuts (auto) Absolute Nucleated RBC Nucleated RBC % (auto) PT INR APTT VBG pH VBG pCO2 VBG pO2 VBG HCO3 VBG O2 Saturation VBG Base Excess Sodium 164 H* Cancelled 159 H Potassium 4.1 Chloride 132 H Carbon Dioxide 20 L Anion Gap 11 L BUN 40 H Creatinine 0.68 Estim Creat Clear Calc 41.3 Estimated GFR > 60 Random Glucose 135 H Lactic Acid Calcium 8.4 Magnesium Total Bilirubin Direct Bilirubin AST ALT Alkaline Phosphatase Ammonia Total Creatine Kinase Troponin I High Sens Total Protein Albumin Lipase TSH Free T4 Urine Color Urine Appearance Urine pH Ur Specific [place] Urine Protein Urine Glucose (UA) Urine Ketones Urine Blood Urine Nitrite Ur Leukocyte Esterase Urine RBC Urine WBC Ur Squamous Epith Cells Urine Bacteria Hyaline Casts Influenza Type A (PCR) Influenza Type B (PCR) RSV RNA Qual (PCR) SARS-CoV-2 RNA (RT-PCR) Blood Type Antibody Screen 07/12/24 08:39 WBC 6.2 RBC 2.97 L D Hgb 9.6 L D Hct 32.7 L D MCV 110.1 H D MCH 32.3 MCHC 29.4 L RDW 14.1 Plt Count 70 L D MPV 13.1 H Immature Gran % (Auto) 0.3 Neut % (Auto) 75.8 H Lymph % (Auto) 15.4 L [place] % (Auto) 7.7 Eos % (Auto) 0.5 Baso % (Auto) 0.3 Lymph # (Auto) 1.0 L [place] # (Auto) 0.5 Eos # (Auto) 0.0 Baso # (Auto) 0.0 Abs Immat Gran (auto) 0.02 Absolute Neuts (auto) 4.7 Absolute Nucleated RBC 0.000 Nucleated RBC % (auto) 0.0 PT INR APTT VBG pH VBG pCO2 VBG pO2 VBG HCO3 VBG O2 Saturation VBG Base Excess Sodium Potassium Chloride Carbon Dioxide Anion Gap BUN Creatinine Estim Creat Clear Calc Estimated GFR Random Glucose Lactic Acid Calcium Magnesium Total Bilirubin Direct Bilirubin AST ALT Alkaline Phosphatase Ammonia Total Creatine Kinase Troponin I High Sens Total Protein Albumin Lipase TSH Free T4 Urine Color Urine Appearance Urine pH Ur Specific [place] Urine Protein Urine Glucose (UA) Urine Ketones Urine Blood Urine Nitrite Ur Leukocyte Esterase Urine RBC Urine WBC Ur Squamous Epith Cells Urine Bacteria Hyaline Casts Influenza Type A (PCR) Influenza Type B (PCR) RSV RNA Qual (PCR) SARS-CoV-2 RNA (RT-PCR) Blood Type Antibody Screen ECG Interpretation: EKG with atrial flutter at a rate of 40/Min. Imaging Radiologist's impression: Impressions Chest X-Ray 07/11/24 15:30 IMPRESSION: No acute airspace disease. Electronically signed by: Mauro Oneill MD 07/11/2024 03:44 PM EDT Assessment and Plan (1) Atrial flutter by electrocardiography: Status: Acute (2) Bradycardia: Status: Acute (3) Acute hypernatremia: Status: Acute (4) Acute metabolic encephalopathy: Status: Acute Plan EKG shows atrial flutter with slow ventricular response. Troponin levels are 39 and 76. Abnormal labs with very high sodium. Low platelets. Patient herself is nonverbal. At this time, recommend correcting all electrolyte abnormalities. We will try to get an echocardiogram. As far as rhythm is concerned, seems like atrial flutter and a possibly a junctional escape. Need to assess for any improvement in rate after the electrolytes are corrected. We will also need to reach out to the guardian regarding goals of care. We will follow up with you. Discussed with hospitalist. Procedures Date of Service Date of Service: 07/12/24
[2024-07-12] MEDS: Enoxaparin Sodium 40 MG/0.4 ML SYRINGE SUBCUT (11:22)
--- NOTE | 2024-07-12 11:22 | P.CONNP_ITS ---
History of Present Illness Reason for Consult Consult date: 07/12/24 Reason for consult: Hypernatremia Chief Complaint Chief complaint: ams, uti, bradycardia History of Present Illness Narrative: Unable to obtain any history from patient. Information obtain from EMR. 83-year-old female with history of atrial fibrillation/flutter anticoagulated with Eliquis, hyperlipidemia, and dementia with mood disturbance presents to the ED from SNF due to poor p.o. intake. The patient has not been eating or drinking much per shelter staff. She has a guardianship patient and is currently full code. The patient is unable to provide any history but is arousable. Per EMS, the patient required bagging en route but has been breathing on her own but noted to have shallow breathing. She has been bradycardic in the ED in the 30s but blood pressures stable. Since arrival, vitals have otherwise been stable. She was noted to be 90% on room air and was placed on 2 L supplemental O2 via nasal cannula. There is no leukocytosis. Platelets are 115. Renal function consistent with CKD stage 3 with creatinine 0.96 and GFR 56. Sodium significantly elevated at 164, potassium 5.1, chloride 138, CO2 18 following 2 L normal saline. Sodium on arrival was 165. Subsequent VBG with pH 7.51, pCO2 25, HC03 20. AST 79, ALT 80, CPK 394. Initial troponin 39, repeat pending. TSH 0.56. UA with 1+ leukocytes, positive nitrites, 1+ blood, positive urinary sediment, 2+ protein and elevated specific gravity. Negative for COVID-19, RSV, influenza. Head CT negative for any acute intracranial abnormality. CT cervical spine negative for any acute injury. CXR unremarkable. In the ED, she received 0.5 mg atropine with transient improvement in heart rate to the 50s with rhythm noted to be atrial flutte Review of Systems Review of Systems Yes Unobtainable due to mental condition [facility] Past Medical History Medical History (Updated 07/12/24 @ 09:32 by Piotr Card MD) Hyperlipidemia Atrial fibrillation and flutter Dementia Social History Social History Household Members: Unknown / Unable to assess Housing: Assisted Living Facility Do you presently have visiting nurse or other home services: Yes Unable to assess alcohol history related to: Unable to respond Patient Tobacco Use Status: Tobacco use Unknown Use of substances other than those prescribed or required for medical reasons: Unable to respond Advance Directives: Yes Advance Directives on File: Yes Advance Directives Date on File: 07/11/24 Do you have a plan to hurt others: No Plan Recently lost weight without trying: Unsure Nutrition Risks: Poor intake 0-25% >4 days Patient : No : No Poor oral hygiene: No service: No Meds Allergies Allergy/AdvReac Type Severity Reaction Status Date / Time hydromorphone Allergy Unknown Verified 07/11/24 14:10 oxycodone Allergy Unknown Verified 07/11/24 14:10 roflumilast Allergy Unknown Verified 07/11/24 14:10 Active Medications: Current Medications Acetaminophen (Acetaminophen 325 Mg Tablet) 650 mg PO Q6H PRN PRN Reason: Pain, Mild 1-3,fever,headache Calcium Carbonate (Calcium Carbonate 750 Mg Tab.Chew) 750 mg PO Q4H PRN PRN Reason: Heartburn Ceftriaxone Sodium (Ceftriaxone Sodium 1 Gm Vial) 1 gm IVPUSH Q24H [facility] Enoxaparin Sodium (Enoxaparin Sodium 40 Mg/0.4 Ml Syringe) 40 mg SUBCUT Q24H [facility] Dextrose (D5w) 1,000 mls @ 80 mls/hr IVCONT .[id number] [facility] Last Admin: 07/12/24 07:34 Dose: 80 mls/hr Magnesium Hydroxide (Milk Of Magnesia 30 Ml Oral.Susp) 30 ml PO DAILY PRN PRN Reason: Constipation Melatonin (Melatonin 3 Mg Tablet) 6 mg PO BEDTIME PRN PRN Reason: Insomnia Sodium Chloride (0.9 % Sodium Chloride Flush 3 Ml Syringe) 3 ml IVFLUSH QSHIFT [facility] Last Admin: 07/12/24 08:45 Dose: Not Given Home Medications ?Medication ?Instructions ?Recorded ?Confirmed ?Last Taken ?Type acetaminophen 650 mg 650 mg PO Q4H PRN Fever Greater 07/11/24 07/11/24 Unknown History tablet,extended release Then 100.0F apixaban 2.5 mg tablet (Eliquis) 2.5 mg PO BID 07/11/24 07/11/24 Unknown History atorvastatin 40 mg tablet 40 mg PO BEDTIME 07/11/24 07/11/24 Unknown History bisacodyl 10 mg rectal suppository 10 mg MO DAILY PRN Constipation 07/11/24 07/11/24 Unknown History coal tar 0.5 % shampoo 1 appl topical SA@0900 07/11/24 07/11/24 Unknown History diphenhydramine-zinc acetate 1 1 appl topical BID Itching 07/11/24 07/11/24 Unknown History %-0.1 % topical cream (Benadryl Itch Stopping) escitalopram oxalate 10 mg tablet 10 mg PO DAILY 07/11/24 07/11/24 Unknown History magnesium hydroxide 400 mg/5 mL 30 ml PO DAILY PRN Constipation 07/11/24 07/11/24 Unknown History oral suspension (Milk of Magnesia) melatonin 10 mg tablet 10 mg PO BEDTIME Dementia 07/11/24 07/11/24 Unknown History mineral oil-isopropyl myristat 1 appl topical DAILY 07/11/24 07/11/24 Unknown History lotion sodium phosphates 19 gram-7 118 ml MO DAILY PRN Constipation 07/11/24 07/11/24 Unknown History gram/118 mL enema (Fleet Enema) trazodone 50 mg tablet 25 mg PO BEDTIME 07/11/24 07/11/24 Unknown History Physical Exam Vital Signs: Last Vital Signs Temp 98.3 F 07/12/24 11:19 Pulse 52 07/12/24 11:19 Resp 18 07/12/24 09:54 BP 140/64 H 07/12/24 11:19 Pulse Ox 93 07/12/24 11:19 O2 Del Method Room Air 07/12/24 11:19 O2 Flow Rate 2 07/11/24 19:51 BMI result Body Mass Index 17.1 Const General: ill appearing Neck Neck: Yes supple Cardio Palpation: no palpable S3 Heart sounds: no rubs GI Palpation (GI): Soft to palpation Auscultation: normal bowel sounds Neuro Motor exam (neuro): no asterixis Results Lab Results 07/12/24 08:39 07/12/24 08:00 Lab results: Chemistry 07/11/24 07/11/24 07/11/24 15:59 16:59 21:05 Sodium 165 H* 164 H* 162 H* Potassium 4.8 5.1 Carbon Dioxide 22 18 L BUN 58 H 53 H Creatinine 1.07 0.96 Calcium 10.1 8.4 D 07/12/24 07/12/24 07/12/24 00:35 08:00 08:00 Sodium 164 H* Cancelled 159 H Potassium 4.1 Carbon Dioxide 20 L BUN 40 H Creatinine 0.68 Calcium 8.4 Hematology 07/11/24 07/12/24 14:57 08:39 WBC 6.9 6.2 Hgb 16.8 H 9.6 L D Plt Count 115 L 70 L D Urinalysis 07/11/24 16:11 Urine Color Yellow Urine Appearance Clear Urine pH 5.5 Ur Specific [place] >= 1.030 H Urine Protein 100 (2+) H Urine Glucose (UA) Negative Urine Ketones Negative Urine Blood Small (1+) H Urine Nitrite Positive H Ur Leukocyte Esterase Small (1+) H Urine RBC 11-20 H Urine WBC 21-50 H Ur Squamous Epith Cells 0-2 Hyaline Casts 11-20 Assessment and Plan (1) Acute hypernatremia: Status: Acute Plan Elderly woman with dementia admitted with severe hypernatremia due to free water deficit and LAITH due to hypoperfusion. Goal is to correct serum sodium with hypotonic fluids IV hydration with D5W. Renal function is already improved. Overall prognosis guarded She will follow as needed Procedures Date of Service Date of Service: 07/12/24
[2024-07-12] MEDS: Lactulose 320 GM/480 ML SOLUTION 200 GM PR (11:27)
--- NOTE | 2024-07-12 15:57 | P.CDIM_ITS ---
PROVIDER RESPONSE TEXT: To clarify, the appropriate diagnosis supported by the clinical indicators: Weight loss QUERY TEXT: PHYSICIAN'S DOCUMENTATION REQUEST Date of Query: 07/12/2024 11:05 AM EDT Patient Name: Sabrina Killian Admit Date: 07/11/2024 Dear Hermila Anderson MD, A review of the medical record indicates additional documentation may be needed. Please review below and update the documentation accordingly. Clinical Indicators: Height: 5ft 1in Weight: 41.1kg BMI: 17.1 If possible, please provide an associated diagnosis related to the abnormal BMI, such as: Underweight Weight loss Cachexia Anorexia Malnourished mild, moderate, severe Other (explain) Clinically unable to determine (explain) Thank you, Senia Harmon, CCS, CDIS Use of terms such as suspected, likely, concern for, or probable (associated with a specific diagnosi s that is being evaluated, monitored, or treated as if it exists) are acceptable and can be coded in the inpatient se tting, when documented at the time of discharge. Please use your independent medical judgment in providing your response. THIS QUERY IS PART OF THE PERMANENT MEDICAL RECORD
[2024-07-12] MEDS: cefTRIAXone sodium 1 GM VIAL IVPUSH (16:28)
[2024-07-12] MEDS: 0.9 % Sodium Chloride Flush 3 ML SYRINGE IVFLUSH (16:28)
[2024-07-13 03:58] VITALS: BP 142/80; PULSE 49; RESP 16; TEMP 36.8; O2SAT 98
[2024-07-13 06:14] LABS: Ammonia 34 umol/L (13-55)
[2024-07-13 06:32] LABS: MANUAL DIFF FLAG NO
[2024-07-13 06:52] LABS: Blood Urea Nitrogen 24 mg/dL (9-16); Calcium 8.3 mg/dL (8.4-10.2); Creatinine Clr Calc Pharmacy 48.8; Estimated Glomerular Filt Rate > 60; Glucose Random 110 mg/dL (60-115)
[2024-07-13 07:00] LABS: Anion Gap 9 (12-20); Carbon Dioxide 23 mmol/L (22-29); Chloride 119 mmol/L (96-108); Sodium 148 mmol/L (135-145)
[2024-07-13 07:16] LABS: Basophils Percent Auto 0.2 % (0-2); Eosinophils Absolute Auto 0.1 X10*3/uL (0.0-0.4); Hematocrit 36.3 % (37.0-47.0); Hemoglobin 11.9 g/dl (12.0-16.0); Imm Gran Abs Auto 0.04 X10*3/uL (0.00-0.03); Imm Gran Pct Auto 0.7 % (0.0-0.4); Lymphocytes Absolute Auto 1.5 X10*3/uL (1.2-4.9); Lymphocytes Percent Auto 25.3 % (20-40); Mean Corpuscular HGB Conc 32.8 g/dl (31.0-35.0); Mean Corpuscular Hemoglobin 32.2 pg (27.0-33.0); Mean Corpuscular Volume 98.1 fL (80.0-98.0); Mean Platelet Volume 13.7 fL (9.4-12.3); Monocytes Absolute Auto 0.5 X10*3/uL (0.1-1.2); Neutrophils Absolute Auto 3.8 x10*3/uL (2.0-8.3); Neutrophils Percent Auto 64.8 % (45-73); Red Cell Distribution Width 13.1 % (11.0-16.0); White Blood Count 5.9 X10*3/uL (4.8-10.8)
[2024-07-13 07:17] LABS: Platelet Count 82 X10*3/uL (160-400)
[2024-07-13 07:21] LABS: Folate 12.1 ng/mL (> or = 4.0); Vitamin B12 349 pg/mL (200-900)
[2024-07-13 07:42] VITALS: BP 136/63; PULSE 48; RESP 15; TEMP 36.4; O2SAT 93
[2024-07-13] MEDS: Dextrose 5 % 1,000 ML 80 ML IVCONT ×2 (08:49→20:37)
[2024-07-13] MEDS: Enoxaparin Sodium 40 MG/0.4 ML SYRINGE SUBCUT (08:49)
[2024-07-13] MEDS: Potassium Chloride/H20 10 MEQ/100 ML PIGGYBACK 100 MEQ IV ×4 (08:50→13:09)
--- NOTE | 2024-07-13 08:51 | P.PNCA_ITS ---
Subjective Subjective Date of Service: 07/13/24 Interval history: No new issues. Patient is still nonverbal and not able to give any meaningful information Review of Systems Review of Systems Unable to obtain. Physical Exam Vital Signs: Last Vital Signs Temp 97.5 F 07/13/24 07:42 Pulse 48 L 07/13/24 07:42 Resp 15 07/13/24 07:42 BP 136/63 07/13/24 07:42 Pulse Ox 93 07/13/24 07:42 O2 Del Method Room Air 07/13/24 07:42 O2 Flow Rate 2 07/11/24 19:51 BMI result Body Mass Index 22.2 Const General: ill appearing and lethargic Orientation/consciousness: No patient oriented x3 and lethargic HEENT Other: Unremarkable Head: Yes normal to inspection Neck Neck: Yes normal visual inspection Chest Chest palpation & inspection: normal inspection of the chest Resp Auscultation: clear to auscultation bilaterally Cardio Palpation: normal PMI Heart sounds: S1 normal heart sound present, S2 normal heart sound present, no gallops, no murmurs and no rubs GI Palpation (GI): Soft to palpation Back/Spine/Pelvis Other: unremarkable Skin General skin exam: no rashes or lesions noted Neuro General: No patient oriented x3 Extrem General: Yes normal to inspection Psych Mental Status: mental status grossly abnormal Objective Labs and Meds 07/13/24 05:55 07/13/24 05:55 Lab results: Laboratory Results - last 24 hr 07/12/24 07/12/24 07/13/24 08:00 08:39 05:55 WBC 6.2 5.9 RBC 2.97 L D 3.70 L D Hgb 9.6 L D 11.9 L D Hct 32.7 L D 36.3 L MCV 110.1 H D 98.1 H D MCH 32.3 32.2 MCHC 29.4 L 32.8 RDW 14.1 13.1 Plt Count 70 L D 82 L MPV 13.1 H 13.7 H Immature Gran % (Auto) 0.3 0.7 H Neut % (Auto) 75.8 H 64.8 Lymph % (Auto) 15.4 L 25.3 [place] % (Auto) 7.7 8.0 Eos % (Auto) 0.5 1.0 Baso % (Auto) 0.3 0.2 Lymph # (Auto) 1.0 L 1.5 [place] # (Auto) 0.5 0.5 Eos # (Auto) 0.0 0.1 Baso # (Auto) 0.0 0.0 Abs Immat Gran (auto) 0.02 0.04 H Absolute Neuts (auto) 4.7 3.8 Absolute Nucleated RBC 0.000 0.000 Nucleated RBC % (auto) 0.0 0.0 Sodium 159 H 148 H Potassium 4.1 3.0 L D Chloride 132 H 119 H Carbon Dioxide 20 L 23 Anion Gap 11 L 9 L BUN 40 H 24 H Creatinine 0.68 0.67 Estim Creat Clear Calc 41.3 48.8 Estimated GFR > 60 > 60 Random Glucose 135 H 110 Calcium 8.4 8.3 L Ammonia 34 Vitamin B12 349 Folate 12.1 Progress Note: A&P Assessment and plan (1) Atrial flutter by electrocardiography: Status: Acute (2) Bradycardia: Status: Acute (3) Acute hypernatremia: Status: Acute (4) Acute metabolic encephalopathy: Status: Acute Plan EKG shows atrial flutter with slow ventricular response. Currently, ventricular rate around 45-50/Min. Troponin levels are 39 and 76. Abnormal labs with very high sodium. Low platelets. Echocardiogram with preserved LVEF. Severely dilated left atrium. Patient herself is nonverbal. Considering the overall clinical situation, age, frailty, dementia, lack of comprehension, do not recommend pacemaker at this time. Corrected electronic abnormalities and that may lead to some improvement. Time Spent With Patient Time: Total time managing care of this patient today ____ minutes. Progress Note: Quality Stroke Does the patient have a stroke diagnosis?: No Procedures Date of Service Date of Service: 07/13/24
[2024-07-13] MEDS: 0.9 % Sodium Chloride Flush 3 ML SYRINGE IVFLUSH ×2 (09:03→16:16)
--- NOTE | 2024-07-13 10:43 | P.PNIM_ITS ---
Subjective Subjective Date of Service: 07/13/24 Interval History: Is awake but not answering questions and not following commands. Review of Systems Review of Systems: Yes Unobtainable due to mental status Physical Exam 2 Vital Signs: Vital Signs: Last Vital Signs Temp 97.5 F 07/13/24 07:42 Pulse 48 L 07/13/24 07:42 Resp 15 07/13/24 07:42 BP 136/63 07/13/24 07:42 Pulse Ox 93 07/13/24 07:42 O2 Del Method Room Air 07/13/24 07:42 O2 Flow Rate 2 07/11/24 19:51 BMI result Body Mass Index 22.2 Const: Other: Elderly female lying in bed in no distress Awake but non conversational and not responding to commands S1-S2 heard No wheezing or crackles heard No tenderness upon abdominal examination No pedal edema Objective Data Active Medications Acetaminophen (Acetaminophen 325 Mg Tablet) 650 mg PO Q6H PRN PRN Reason: Pain, Mild 1-3,fever,headache Calcium Carbonate (Calcium Carbonate 750 Mg Tab.Chew) 750 mg PO Q4H PRN PRN Reason: Heartburn Ceftriaxone Sodium (Ceftriaxone Sodium 1 Gm Vial) 1 gm IVPUSH Q24H [facility] Last Admin: 07/12/24 16:28 Dose: 1 gm Documented By: LINDSAY Enoxaparin Sodium (Enoxaparin Sodium 40 Mg/0.4 Ml Syringe) 40 mg SUBCUT Q24H [facility] Last Admin: 07/13/24 08:49 Dose: 40 mg Documented By: LINDSAY Dextrose (D5w) 1,000 mls @ 80 mls/hr IVCONT .[id number] [facility] Last Admin: 07/13/24 08:49 Dose: 80 mls/hr Documented By: LINDSAY Potassium Chloride (Potassium Chloride/H20) 10 meq in 100 mls @ 100 mls/hr IV Q1H [facility] Stop: 07/13/24 11:44 Last Admin: 07/13/24 08:50 Dose: 100 mls/hr Documented By: LINDSAY Magnesium Hydroxide (Milk Of Magnesia 30 Ml Oral.Susp) 30 ml PO DAILY PRN PRN Reason: Constipation Melatonin (Melatonin 3 Mg Tablet) 6 mg PO BEDTIME PRN PRN Reason: Insomnia Sodium Chloride (0.9 % Sodium Chloride Flush 3 Ml Syringe) 3 ml IVFLUSH QSHIFT [facility] Last Admin: 07/13/24 09:03 Dose: 3 ml Documented By: LINDSAY Labs 07/13/24 05:55 07/13/24 05:55 Labs: Laboratory Results - last 24 hr 07/13/24 05:55 MCV 98.1 H D MCH 32.2 MCHC 32.8 RDW 13.1 Plt Count 82 L MPV 13.7 H Immature Gran % (Auto) 0.7 H Neut % (Auto) 64.8 Lymph % (Auto) 25.3 [place] % (Auto) 8.0 Eos % (Auto) 1.0 Baso % (Auto) 0.2 Lymph # (Auto) 1.5 [place] # (Auto) 0.5 Eos # (Auto) 0.1 Baso # (Auto) 0.0 Abs Immat Gran (auto) 0.04 H Absolute Neuts (auto) 3.8 Absolute Nucleated RBC 0.000 Nucleated RBC % (auto) 0.0 Anion Gap 9 L Estim Creat Clear Calc 48.8 Estimated GFR > 60 Random Glucose 110 Calcium 8.3 L Ammonia 34 Vitamin B12 349 Folate 12.1 Microbiology Microbiology Results: Microbiology 07/11/24 16:37 Urine Culture - Final Urine clean catch - Clean Catch Midstream Escherichia coli 07/11/24 14:57 Blood Culture - Preliminary Blood - Venous No growth after 24 hours. 07/11/24 14:55 Blood Culture - Preliminary Blood - Venous No growth after 24 hours. Assessment and Plan (1) Acute hypernatremia: Status: Acute (2) Bradycardia: Status: Acute (3) Atrial flutter by electrocardiography: Status: Acute Plan 83-year-old female with history of atrial fibrillation/flutter anticoagulated with Eliquis, hyperlipidemia, and dementia with mood disturbance admitted for further management of acute UTI with encephalopathy. # Acute metabolic encephalopathy in a patient with advanced dementia due to UTI + hypernatremia -IV ceftriaxone (initiated 07/11) -urine culture: Ecoli -NPO ,will get speech to see 07/13 -has underlying dementia>baseline: Patient minimally talks 1-2 words but nonsensical, is not conversational and does not follow commands at baseline -lethargy improved with improvement in sodium -sodium improving with D5W -nephrology consulted # Hypokalemia -repleted # unspecified atrial fibrillation/flutter with bradycardia -not on any beta-blockers -monitor on telemetry -changed eliqiuis to lovenox (1mg/kg daily as thrombocytopenia with plt <100k and increased bleeding risk as age>75) until cleared by speech -cardiology consulted> pacemaker not recommended due to age, frailty, dementia, lack of comprehension. Echocardiogram with preserved LVEF. Severely dilated left atrium. # hyperlipidemia -hold statin # unspecified dementia with mood disorder -hold home meds -maintain sleep-wake cycle # macrocytic anemia -at baseline -Hb likely concentrated on admission due to IVVD -folate and b12 WNL # thrombocytopenia -?chronic. noted drop likely due to infection DVT prophylaxis-Lovenox DNR/DNI As per case manager specialist: guardianship was already expanded to allow for DNR/DNI in jun 2023. She may even already have a MOLST that's @ [employer] . Changed code status to DNR/DNI Guardian- SAMANTA @[facility] [phone] Reason for continued hospitalization: Needs IV fluids for electrolyte correction. Also IV abx for acute UTI Quality Stroke Does the patient have a stroke diagnosis?: No VTE Prior VTE?: No VTE Risk Level:: Medical - moderate - high VTE Device Contraindication: Treatment Not Indicated VTE Drug Contraindication: N/A - Med Ordered
[2024-07-13 11:08] VITALS: BP 137/65; PULSE 49; RESP 15; TEMP 36.7; O2SAT 99
--- NOTE | 2024-07-13 13:48 | MHC.CM.PN ---
EMR reviewed and per MD rounds, pt is not medically cleared for discharge at this time due to management of UTI.
[2024-07-13 16:12] VITALS: BP 130/88; PULSE 48; RESP 16; TEMP 36.8; O2SAT 100
[2024-07-13] MEDS: cefTRIAXone sodium 1 GM VIAL IVPUSH (16:16)
[2024-07-13 19:40] VITALS: BP 128/62; PULSE 52; RESP 16; TEMP 37.4; O2SAT 97
[2024-07-13 23:38] VITALS: BP 130/61; PULSE 50; RESP 16; TEMP 37.6; O2SAT 100
[2024-07-14 04:00] VITALS: BP 118/58; PULSE 53; RESP 18; TEMP 37.1; O2SAT 97
[2024-07-14 06:53] LABS: MANUAL DIFF FLAG NO
[2024-07-14 07:01] LABS: Basophils Percent Auto 0.3 % (0-2); Eosinophils Absolute Auto 0.1 X10*3/uL (0.0-0.4); Eosinophils Percent Auto 1.6 % (0-4); Hematocrit 36.4 % (37.0-47.0); Hemoglobin 12.6 g/dl (12.0-16.0); Imm Gran Abs Auto 0.03 X10*3/uL (0.00-0.03); Imm Gran Pct Auto 0.5 % (0.0-0.4); Lymphocytes Absolute Auto 1.7 X10*3/uL (1.2-4.9); Mean Corpuscular HGB Conc 34.6 g/dl (31.0-35.0); Mean Corpuscular Hemoglobin 32.1 pg (27.0-33.0); Mean Corpuscular Volume 92.9 fL (80.0-98.0); Mean Platelet Volume 13.7 fL (9.4-12.3); Monocytes Absolute Auto 0.4 X10*3/uL (0.1-1.2); Monocytes Percent Auto 6.2 % (2-11); Neutrophils Absolute Auto 4.1 x10*3/uL (2.0-8.3); Neutrophils Percent Auto 64.4 % (45-73); Platelet Count 87 X10*3/uL (160-400); Red Blood Count 3.92 X10*6/uL (4.20-5.50); White Blood Count 6.3 X10*3/uL (4.8-10.8)
[2024-07-14 07:14] LABS: Anion Gap 10 (12-20); Blood Urea Nitrogen 14 mg/dL (9-16); Calcium 8.5 mg/dL (8.4-10.2); Carbon Dioxide 21 mmol/L (22-29); Chloride 113 mmol/L (96-108); Creatinine Clr Calc Pharmacy 51.9; Estimated Glomerular Filt Rate > 60; Glucose Random 116 mg/dL (60-115); Potassium 3.4 mmol/L (3.3-5.1); Sodium 141 mmol/L (135-145)
[2024-07-14 07:17] VITALS: BP 96/51; PULSE 48; RESP 18; TEMP 36.9; O2SAT 99
--- NOTE | 2024-07-14 07:17 | HE.PHANOTE ---
VANCO DOSE ADJUSTMENT BASED ON SCR AND TROUGH OF 15.2 DOSE CONTINUED AT 500 Q 24H. NEXT LEVEL 07/16 @ 0600
[2024-07-14] MEDS: Enoxaparin Sodium 40 MG/0.4 ML SYRINGE SUBCUT (09:24)
[2024-07-14] MEDS: 0.9 % Sodium Chloride Flush 3 ML SYRINGE IVFLUSH ×3 (09:25→20:29)
--- NOTE | 2024-07-14 10:44 | HO.PM.IMPN ---
Subjective Subjective Date of Service: 07/14/24 Interval History: Is awake but not answering questions and not following commands. Physical Exam Vital Signs: Vital Signs: Last Vital Signs Temp 98.5 F 07/14/24 07:17 Pulse 48 L 07/14/24 07:17 Resp 18 07/14/24 07:17 BP 96/51 L 07/14/24 07:17 Pulse Ox 99 07/14/24 07:17 O2 Del Method Room Air 07/14/24 07:17 O2 Flow Rate 2 07/11/24 19:51 BMI result Body Mass Index 22.2 Const: Other: Elderly female lying in bed in no distress Awake but non conversational and not responding to commands S1-S2 heard No wheezing or crackles heard No tenderness upon abdominal examination No pedal edema Objective Data Active Medications Acetaminophen (Acetaminophen 325 Mg Tablet) 650 mg PO Q6H PRN PRN Reason: Pain, Mild 1-3,fever,headache Calcium Carbonate (Calcium Carbonate 750 Mg Tab.Chew) 750 mg PO Q4H PRN PRN Reason: Heartburn Ceftriaxone Sodium (Ceftriaxone Sodium 1 Gm Vial) 1 gm IVPUSH Q24H [facility] Last Admin: 07/13/24 16:16 Dose: 1 gm Documented By: LINDSAY Enoxaparin Sodium (Enoxaparin Sodium 40 Mg/0.4 Ml Syringe) 40 mg SUBCUT Q24H [facility] Last Admin: 07/14/24 09:24 Dose: 40 mg Documented By: ALEX Magnesium Hydroxide (Milk Of Magnesia 30 Ml Oral.Susp) 30 ml PO DAILY PRN PRN Reason: Constipation Melatonin (Melatonin 3 Mg Tablet) 6 mg PO BEDTIME PRN PRN Reason: Insomnia Sodium Chloride (0.9 % Sodium Chloride Flush 3 Ml Syringe) 3 ml IVFLUSH QSHIFT [facility] Last Admin: 07/14/24 09:25 Dose: 3 ml Documented By: ALEX Labs 07/14/24 06:14 07/14/24 06:14 Labs: Laboratory Results - last 24 hr 07/14/24 06:14 MCV 92.9 D MCH 32.1 MCHC 34.6 RDW 13.0 Plt Count 87 L MPV 13.7 H Immature Gran % (Auto) 0.5 H Neut % (Auto) 64.4 Lymph % (Auto) 27.0 [place] % (Auto) 6.2 Eos % (Auto) 1.6 Baso % (Auto) 0.3 Lymph # (Auto) 1.7 [place] # (Auto) 0.4 Eos # (Auto) 0.1 Baso # (Auto) 0.0 Abs Immat Gran (auto) 0.03 Absolute Neuts (auto) 4.1 Absolute Nucleated RBC 0.000 Nucleated RBC % (auto) 0.0 Anion Gap 10 L Estim Creat Clear Calc 51.9 Estimated GFR > 60 Random Glucose 116 H Calcium 8.5 Microbiology Microbiology Results: Microbiology 07/11/24 14:57 Blood Culture - Preliminary Blood - Venous No growth after 48 hours. 07/11/24 14:55 Blood Culture - Preliminary Blood - Venous No growth after 48 hours. 07/11/24 16:37 Urine Culture - Final Urine clean catch - Clean Catch Midstream Escherichia coli Assessment and Plan (1) Dementia: Status: Acute Plan 83-year-old female with history of atrial fibrillation/flutter anticoagulated with Eliquis, hyperlipidemia, and dementia with mood disturbance admitted for further management of acute UTI with encephalopathy. # Acute metabolic encephalopathy in a patient with advanced dementia due to UTI + hypernatremia -lethargy improved with improvement in sodium -IV ceftriaxone (initiated 07/11) -urine culture: Ecoli -Speech> Dysphagia secondary to advanced dementia. Recommend start diet of Puree(NDD1), with thin liquids, pills crushed in puree, requires 1-1 feed. BRASS CHASER will follow. Restarted diet 07/14 -has underlying dementia>baseline: Patient minimally talks 1-2 words but nonsensical, is not conversational and does not follow commands at baseline -sodium corrected with D5W. Monitor with resumption of diet and off D5W -nephrology consulted # Hypokalemia -repleted # unspecified atrial fibrillation/flutter with bradycardia -not on any beta-blockers -monitor on telemetry -on eliquis -cardiology consulted> pacemaker not recommended due to age, frailty, dementia, lack of comprehension. Echocardiogram with preserved LVEF. Severely dilated left atrium. # hyperlipidemia -d/c'ed statin # unspecified dementia with mood disorder -on lexapro. trazodone held due to lethargy/somnolence -maintain sleep-wake cycle # macrocytic anemia -at baseline -Hb concentrated on admission due to IVVD -folate and b12 WNL # thrombocytopenia -?chronic. DVT prophylaxis-Eliquis DNR/DNI As per mental health case manager: guardianship was already expanded to allow for DNR/DNI in jun 2023. She may even already have a MOLST that's @ [facility] [place] . Changed code status to DNR/DNI. MOLST on file confirming DNR/DNI Guardian- SAMANTA @[facility] [phone] Reason for continued hospitalization: Resumed diet 07/14 due to improvement in mentation, monitor intake and monitor sodium with resumption of diet and off D5W Quality Stroke Does the patient have a stroke diagnosis?: No VTE Prior VTE?: No VTE Risk Level:: Medical - moderate - high VTE Device Contraindication: Treatment Not Indicated VTE Drug Contraindication: N/A - Med Ordered
[2024-07-14] MEDS: Lactated Ringers 1,000 ML 999 ML IV (10:53)
[2024-07-14 10:59] VITALS: BP 112/58; PULSE 47; RESP 16; TEMP 36.9; O2SAT 98
--- NOTE | 2024-07-14 12:39 | MHC.SL.SWA ---
Speech Pathologist Impression: Risk of Aspiration Due to: Neurological Condition Poor PO Intake Reduced Cognition Dysphasia Diet Status: Liquid Consistency and Strategies for Safe Swallow: Liquid Intake Recommendation: Thin Liquid Intake Strategies: Small Sips No Straws Solid Food Consistency: Dietary Recommendations: Pureed (NDD1) Additional Modifications to Solid Foods: Patient is highly confused, requires 1-1 feeding. [place] patient to food, liquids before giving, encourage trying different purees. Liquids by controlled cup sip or tsp. Oral Medication Intake: Crushed with Puree Please contact the pharmacy regarding appropriate crushable or liquid drug formulations that are available whenever modified delivery is recommended. Compensatory Strategies and Precautions to be Taken for Safe Swallow: Sitting Upright (90 deg) No Straw Liquids from Cup Liquids from Spoon Small Bites and Sips Alternate Liquids/Solids Rate of Ingestion Change Supervision While Eating and Drinking for Safe Swallow: Total Assistance (1:1) Foods to Avoid: Swallowing Recommended Treatments: Compens. Strategy Educat. Recommendation for Speech: Inpatient Speech Therapy Comment: Patient with advanced dementia, confused, minimally verbal. Most motoric aspects of swallow appear intact, however due to confusion, behavior, patient minimally opens mouth when fed, takes only small amounts. HOSPICE HOME CARE COORDINATOR unable on this date to trial food consistencies beyond puree, patient tolerated a few bites of puree given by spoon for this assessment. Recommend UPGRADE from NPO to Puree (NDD1) with THIN liquids (by controlled cup sip or tsp), pills crushed in puree. Patient requires a 1-1 feeding, does not initiate any self feeding. Patient likely to be difficult to feed and may eat minimally. MD/RD notified of recommendation by secure text, RN in person. HOSPICE HOME CARE COORDINATOR will continue to follow. Frequency/Duration: Date Range for Service Req: Timeline to reassess: Mold Making Supervisor Clinican/Clinical Fellow: No Supervisory Statement: I have reviewed and agree with the student/clinical fellow's documentation: N/A Speech Language Pathologist: Shasta Chauhan M.A., [facility]-HOSPICE HOME CARE COORDINATOR
[2024-07-14 15:33] VITALS: BP 116/56; PULSE 48; RESP 12; TEMP 36.9; O2SAT 100
[2024-07-14] MEDS: cefTRIAXone sodium 1 GM VIAL IVPUSH (17:10)
[2024-07-14 20:00] VITALS: BP 110/56; PULSE 50; RESP 12; TEMP 37.3; O2SAT 100
[2024-07-14] MEDS: Apixaban 2.5 MG TABLET PO (20:28)
[2024-07-15] VITALS: BP 117/61; PULSE 55; RESP 18; TEMP 36.6; O2SAT 95
[2024-07-15 03:12] VITALS: BP 116/81; PULSE 72; RESP 18; TEMP 36.7; O2SAT 95
[2024-07-15 07:07] VITALS: BP 127/60; PULSE 43; RESP 18; TEMP 36.2; O2SAT 98
[2024-07-15 07:20] LABS: MANUAL DIFF FLAG NO
[2024-07-15 07:38] LABS: Basophils Percent Auto 0.2 % (0-2); Eosinophils Absolute Auto 0.1 X10*3/uL (0.0-0.4); Eosinophils Percent Auto 2.4 % (0-4); Hemoglobin 12.1 g/dl (12.0-16.0); Imm Gran Abs Auto 0.02 X10*3/uL (0.00-0.03); Imm Gran Pct Auto 0.3 % (0.0-0.4); Lymphocytes Absolute Auto 1.4 X10*3/uL (1.2-4.9); Lymphocytes Percent Auto 23.2 % (20-40); Mean Corpuscular HGB Conc 34.6 g/dl (31.0-35.0); Mean Corpuscular Hemoglobin 32.2 pg (27.0-33.0); Mean Corpuscular Volume 93.1 fL (80.0-98.0); Mean Platelet Volume 13.4 fL (9.4-12.3); Monocytes Absolute Auto 0.3 X10*3/uL (0.1-1.2); Monocytes Percent Auto 5.7 % (2-11); Neutrophils Absolute Auto 4.1 x10*3/uL (2.0-8.3); Neutrophils Percent Auto 68.2 % (45-73); Red Blood Count 3.76 X10*6/uL (4.20-5.50); Red Cell Distribution Width 12.8 % (11.0-16.0); White Blood Count 5.9 X10*3/uL (4.8-10.8)
[2024-07-15 07:40] LABS: Anion Gap 11 (12-20); Blood Urea Nitrogen 12 mg/dL (9-16); Calcium 8.4 mg/dL (8.4-10.2); Carbon Dioxide 22 mmol/L (22-29); Chloride 114 mmol/L (96-108); Creatinine Clr Calc Pharmacy 53.6; Estimated Glomerular Filt Rate > 60; Glucose Random 77 mg/dL (60-115); Potassium 3.2 mmol/L (3.3-5.1); Sodium 144 mmol/L (135-145)
[2024-07-15 07:41] LABS: Platelet Count 88 X10*3/uL (160-400)
[2024-07-15 08:39] LABS: Magnesium 1.8 mg/dL (1.6-2.6)
[2024-07-15] MEDS: Potassium Chloride Packet 20 MEQ PACKET PO (09:26)
[2024-07-15] MEDS: Escitalopram Oxalate 10 MG TABLET PO (09:27)
[2024-07-15] MEDS: Apixaban 2.5 MG TABLET PO (09:27)
[2024-07-15] MEDS: 0.9 % Sodium Chloride Flush 3 ML SYRINGE IVFLUSH (09:27)
--- NOTE | 2024-07-15 10:50 | MHC.CM.PN ---
Patient has been medically cleared for dc to return to LTC today. Patient will return to LTC @ [facility] today at 2PM, via [facility]. CM spoke with Guardian/[facility] @ [phone] and informed them of the dc plan and IMM will be mailed certified letter to them.
[2024-07-15 11:13] VITALS: BP 129/60; PULSE 45; RESP 16; TEMP 36.4; O2SAT 96
--- NOTE | 2024-07-15 12:19 | MHC.SL.SWA ---
Speech Pathologist Impression: Risk of Aspiration, Oropharyngeal Dysphagia Risk of Aspiration Due to: Neurological Condition Poor PO Intake Reduced Cognition Dysphasia Diet Status: Continue on PUREE (NDD1) and THIN Liquid Consistency and Strategies for Safe Swallow: Liquid Intake Recommendation: Thin Liquid Intake Strategies: Small Sips No Straws Solid Food Consistency: Dietary Recommendations: Pureed (NDD1) Additional Modifications to Solid Foods: Patient is highly confused, requires 1-1 feeding. [place] patient to food, liquids before giving, encourage trying different purees. Liquids by controlled cup sip or tsp. Oral Medication Intake: Crushed with Puree Please contact the pharmacy regarding appropriate crushable or liquid drug formulations that are available whenever modified delivery is recommended. Compensatory Strategies and Precautions to be Taken for Safe Swallow: Sitting Upright (90 deg) No Straw Small Bites and Sips Alternate Liquids/Solids Rate of Ingestion Change Oral Check Supervision While Eating and Drinking for Safe Swallow: Total Assistance (1:1) Swallowing Recommended Treatments: Compens. Strategy Educat. Recommendation for Speech: Inpatient Speech Therapy Comment: Patient with advanced dementia, confused, minimally verbal. Most motoric aspects of swallow appear intact, however due to confusion, behavior, patient minimally opens mouth when fed, takes only small amounts. Patient requires a 1-1 feeding, does not initiate any self feeding. Patient likely to be difficult to feed and may eat minimally. Frequency/Duration: Date Range for Service Req: Timeline to reassess: Rehabilitation Center Manager Clinican/Clinical Fellow: No Supervisory Statement: I have reviewed and agree with the student/clinical fellow's documentation: N/A Speech Language Pathologist: Letty Courtney M.A., CCC-STAFF SONOGRAPHER
--- NOTE | 2024-07-15 13:29 | P.DS_ITS ---
DS: Providers Provider Date of Service: 07/15/24 Date of admission: 07/11/24 18:42 Date of discharge: 07/15/24 Primary care physician: Tahira Sanchez MD Consults: 07/11/24 17:49 Consult to Nephrology Routine Consulting Provider: [facility] Reason for consultation: hypernatremia Na 165 07/11/24 18:42 Consult to Cardiology Routine Consulting Provider: [facility] Reason for consultation: bradycardia DS: Diagnosis Discharge Diagnosis (1) Dementia: Status: Acute (2) Atrial flutter by electrocardiography: Status: Acute (3) Bradycardia: Status: Acute (4) Acute hypernatremia: Status: Acute (5) Acute UTI: Status: Acute (6) Altered mental status: Status: Acute (7) Acute metabolic encephalopathy: Status: Acute (8) Thrombocytopenia: Status: Acute DS: Summary Hospital Course Hospital Course: From the history and physical by the admitting hospitalist, CASSY Dudley, 07/11/24: 83-year-old female with history of atrial fibrillation/flutter anticoagulated with Eliquis, hyperlipidemia, and dementia with mood disturbance presents to the ED from SNF due to poor p.o. intake. The patient has not been eating or drinking much per fpc staff. She has a guardianship patient and is currently full code. The patient is unable to provide any history but is arousable. Per EMS, the patient required bagging en route but has been breathing on her own but noted to have shallow breathing. She has been bradycardic in the ED in the 30s but blood pressures stable. Since arrival, vitals have otherwise been stable. She was noted to be 90% on room air and was placed on 2 L supplemental O2 via nasal cannula. There is no leukocytosis. Platelets are 115. Renal function consistent with CKD stage 3 with creatinine 0.96 and GFR 56. Sodium significantly elevated at 164, potassium 5.1, chloride 138, CO2 18 following 2 L normal saline. Sodium on arrival was 165. Subsequent VBG with pH 7.51, pCO2 25, HC03 20. AST 79, ALT 80, CPK 394. Initial troponin 39, repeat pending. TSH 0.56. UA with 1+ leukocytes, positive nitrites, 1+ b lood, positive urinary sediment, 2+ protein and elevated specific gravity. Negative for COVID-19, RSV, influenza. Head CT negative for any acute intracranial abnormality. CT cervical spine negative for any acute injury. CXR unremarkable. In the ED, she received 0.5 mg atropine with transient improvement in heart rate to the 50s with rhythm noted to be atrial flutter. She was given 2 L normal saline which was changed to D5W following repeat sodium levels. She also received 1 g ceftriaxone for UTI as well as IV Tylenol. She will be admitted for further management of acute UTI with metabolic encephalopathy. 83-year-old female with history of atrial fibrillation/flutter anticoagulated with Eliquis, hyperlipidemia, and dementia with mood disturbance admitted for further management of acute UTI with encephalopathy. Hospital course by problem: # acute metabolic encephalopathy due to UTI + hypernatremia - lethargy improved with improvement in sodium - treated with IV ceftriaxone; urine culture grew E. 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 Cardiology consulted; PPM not recommended due to age, frailty, dementia, and lack of comprehension. - TTE 07/12/24: - The left ventricular systolic function is normal. The calculated ejection fraction is 64% by biplane method. - The left atrium is severely dilated. - No obvious valvular pathology seen on this study. - There is mild dilatation of the ascending aorta measuring 4.10 cm. - apixaban continued # thrombocytopenia - mild, unknown baseline, stable; recommend rechecking CBC in 1 week She was discharged back to [facility] for [facility]-term [facility] care. Time Attestation Discharge Coordination Time (in mins): 45 Quality: Safe Use of Opioids Does Pt have an Active Cancer Diagnosis on the Problem List?: No Quality: Stroke Does the patient have a stroke diagnosis?: No Physical Exam Vital Signs: Vital Signs: Last Vital Signs Temp 97.5 F 07/15/24 11:13 Pulse 45 L 07/15/24 11:13 Resp 16 07/15/24 11:13 BP 129/60 07/15/24 11:13 Pulse Ox 96 07/15/24 11:13 O2 Del Method Room Air 07/15/24 11:13 O2 Flow Rate 2 07/11/24 19:51 BMI result Body Mass Index 22.2 Gen: in no acute distress HEENT: sclera anicteric, moist mucus membranes Neck: supple Lungs: clear to auscultation bilaterally Heart: regular rate and rhythm, no murmurs Abd: soft, non-tender, non-distended Ext: no edema Skin: warm/well-perfused Neuro: alert, unable to assess orientation, no focal weakess Psych: impaired insight DS: Data Data Completed and Pending Completed studies during hospitalization [Text1]: Laboratory Results WBC 5.9 X10*3/uL (4.8-10.8) 07/15/24 07:05 RBC 3.76 X10*6/uL (4.20-5.50) L 07/15/24 07:05 Hgb 12.1 g/dl (12.0-16.0) 07/15/24 07:05 Hct 35.0 % (37.0-47.0) L 07/15/24 07:05 MCV 93.1 fL (80.0-98.0) 07/15/24 07:05 MCH 32.2 pg (27.0-33.0) 07/15/24 07:05 MCHC 34.6 g/dl (31.0-35.0) 07/15/24 07:05 RDW 12.8 % (11.0-16.0) 07/15/24 07:05 Plt Count 88 X10*3/uL (160-400) L 07/15/24 07:05 MPV 13.4 fL (9.4-12.3) H 07/15/24 07:05 Immature Gran % (Auto) 0.3 % (0.0-0.4) 07/15/24 07:05 Neut % (Auto) 68.2 % (45-73) 07/15/24 07:05 Lymph % (Auto) 23.2 % (20-40) 07/15/24 07:05 [place] % (Auto) 5.7 % (2-11) 07/15/24 07:05 Eos % (Auto) 2.4 % (0-4) 07/15/24 07:05 Baso % (Auto) 0.2 % (0-2) 07/15/24 07:05 Lymph # (Auto) 1.4 X10*3/uL (1.2-4.9) 07/15/24 07:05 [place] # (Auto) 0.3 X10*3/uL (0.1-1.2) 07/15/24 07:05 Eos # (Auto) 0.1 X10*3/uL (0.0-0.4) 07/15/24 07:05 Baso # (Auto) 0.0 X10*3/uL (0.0-0.2) 07/15/24 07:05 Abs Immat Gran (auto) 0.02 X10*3/uL (0.00-0.03) 07/15/24 07:05 Absolute Neuts (auto) 4.1 x10*3/uL (2.0-8.3) 07/15/24 07:05 Absolute Nucleated RBC 0.000 X10*3/uL (0.0-0.012) 07/15/24 07:05 Nucleated RBC % (auto) 0.0 /100WBC (0.0-0.2) 07/15/24 07:05 PT 13.6 SEC (10.9-12.4) H 07/11/24 14:57 INR 1.2 (0.9-1.1) H 07/11/24 14:57 APTT 22.0 SEC (26.0-36.8) L 07/11/24 14:57 VBG pH 7.51 (7.32-7.43) H 07/11/24 15:07 VBG pCO2 25 mmHg 07/11/24 15:07 VBG pO2 47 mmHg 07/11/24 15:07 VBG HCO3 20 mmol/L (22-26) L 07/11/24 15:07 VBG O2 Saturation 82.0 % 07/11/24 15:07 VBG Base Excess -0.3 mmol/L 07/11/24 15:07 Sodium 144 mmol/L (135-145) 07/15/24 07:05 Potassium 3.2 mmol/L (3.3-5.1) L 07/15/24 07:05 Chloride 114 mmol/L (96-108) H 07/15/24 07:05 Carbon Dioxide 22 mmol/L (22-29) 07/15/24 07:05 Anion Gap 11 (12-20) L 07/15/24 07:05 BUN 12 mg/dL (9-16) 07/15/24 07:05 Creatinine 0.61 mg/dL (0.5-1.4) 07/15/24 07:05 Estim Creat Clear Calc 53.6 07/15/24 07:05 Estimated GFR > 60 07/15/24 07:05 Random Glucose 77 mg/dL (60-115) 07/15/24 07:05 Lactic Acid 1.6 mmol/L (0.5-2.0) 07/11/24 15:59 Calcium 8.4 mg/dL (8.4-10.2) 07/15/24 07:05 Magnesium 1.8 mg/dL (1.6-2.6) 07/15/24 07:05 Total Bilirubin 1.0 mg/dL (0.0-1.0) 07/11/24 15:59 Direct Bilirubin 0.2 mg/dL (0.0-0.5) 07/11/24 15:59 AST 79 U/L (5-31) H 07/11/24 15:59 ALT 80 U/L (0-31) H 07/11/24 15:59 Alkaline Phosphatase 92 U/L (39-117) 07/11/24 15:59 Ammonia 34 umol/L (13-55) 07/13/24 05:55 Total Creatine Kinase 394 U/L (26-140) H 07/11/24 15:59 Troponin I High Sens 76.1 ng/L (<3.5-17.0) H* D 07/11/24 19:29 Total Protein 8.3 g/dL (6.5-8.0) H 07/11/24 15:59 Albumin 3.9 g/dL (3.5-5.0) 07/11/24 15:59 Lipase 37 U/L (8-78) 07/11/24 15:59 Vitamin B12 349 pg/mL (200-900) 07/13/24 05:55 Folate 12.1 ng/mL (> or = 4.0) 07/13/24 05:55 TSH 0.56 uIU/mL (0.32-4.0) 07/11/24 15:59 Free T4 0.82 ng/dL (0.71-1.85) 07/11/24 15:59 Urine Color Yellow 07/11/24 16:11 Urine Appearance Clear 07/11/24 16:11 Urine pH 5.5 (5.0-9.0) 07/11/24 16:11 Ur Specific [place] >= 1.030 (1.005-1.025) H 07/11/24 16:11 Urine Protein 100 (2+) mg/dL (Neg-Trace) H 07/11/24 16:11 Urine Glucose (UA) Negative mg/dL (Negative) 07/11/24 16:11 Urine Ketones Negative mg/dL (Negative) 07/11/24 16:11 Urine Blood Small (1+) (Negative) H 07/11/24 16:11 Urine Nitrite Positive (Negative) H 07/11/24 16:11 Ur Leukocyte Esterase Small (1+) (Negative) H 07/11/24 16:11 Urine RBC 11-20 /HPF (0-2) H 07/11/24 16:11 Urine WBC 21-50 /HPF (0-5) H 07/11/24 16:11 Ur Squamous Epith Cells 0-2 /HPF (0-2) 07/11/24 16:11 Urine Bacteria 2+ (None Seen) 07/11/24 16:11 Hyaline Casts 11-20 /LPF (0-2) 07/11/24 16:11 Influenza Type A (PCR) NEGATIVE (Negative) 07/11/24 14:56 Influenza Type B (PCR) NEGATIVE (Negative) 07/11/24 14:56 RSV RNA Qual (PCR) NEGATIVE (Negative) 07/11/24 14:56 SARS-CoV-2 RNA (RT-PCR) NEGATIVE (Negative) 07/11/24 14:56 Blood Type O Negative 07/11/24 14:55 Antibody Screen NEGATIVE 07/11/24 14:55 Impressions Chest X-Ray 07/11/24 15:30 IMPRESSION: No acute airspace disease. Electronically signed by: Mauro Oneill MD 07/11/2024 03:44 PM EDT Discharge Plan Discharge Patient Disposition: Xfer LT Discharge Diagnosis: urinary tract infection hypernatremia atrial fibrillation Referrals: [facility] [Outside] - 1 Week Tahira Sanchez MD [Primary Care Provider] - 1 Week Discharge Medications: New cefuroxime axetil 250 mg tablet 250 mg PO BID Qty: 8 0RF Continued atorvastatin 40 mg tablet 40 mg PO BEDTIME trazodone 50 mg tablet 25 mg PO BEDTIME escitalopram oxalate 10 mg tablet 10 mg PO DAILY Eliquis 2.5 mg tablet 2.5 mg PO BID Benadryl Itch Stopping 1-0.1 % Cream 1 appl TOPICAL BID Rx Instructions: Apply to arms and chest. acetaminophen 650 mg Tablet Extended Release 650 mg PO Q4H PRN (Reason: Fever Greater Then 100.0F) magnesium hydroxide [Milk of Magnesia] 400 mg/5 mL Suspension 30 ml PO DAILY PRN (Reason: Constipation) Rx Instructions: No BM in 3 days. bisacodyl 10 mg Suppository 10 mg HI DAILY PRN (Reason: Constipation) Rx Instructions: No BM in 8 hours after taking Milk of Magnesia. Fleet Enema 19-7 gram/118 mL Enema 118 ml HI DAILY PRN (Reason: Constipation) Rx Instructions: No BM in 8 hours after taking bisacodyl suppository. mineral oil-isopropyl myristat Lotion 1 appl TOPICAL DAILY Rx Instructions: Apply to Arms, Chest and Back once a day for Itching. melatonin 10 mg Tablet 10 mg PO BEDTIME coal tar 0.5 % Shampoo 1 appl TOPICAL SA@0900 Discharge Orders: Discharge Order (Routine); Ordered 07/15/24 Ordered By: Selvin Byrd Diet: Advance to usual diet Activity on Discharge: As tolerated Stand Alone Forms: Patient Portal Discharge page Print Language: Sinhala Other Ambulatory Orders: Basic Metabolic Panel (Routine) Timeframe: 1 Week Facility: [facility] - Location: Laboratory Ordered By: Selvin Byrd Complete Blood Count Auto Diff (Routine) Timeframe: 1 Week Facility: [facility] - Location: Laboratory Ordered By: Selvin Byrd Care Plan Goals: recovery from infection Health Concerns: urinary tract infection hypernatremia atrial fibrillation Plan of Treatment: cefuroxime 250 mg twice daily for 4 days recheck labs [BMP and CBC] in 1 week Please follow up with your primary care doctor within 1 week. Return to the hospital if you experience recurrent or worsening symptoms. Assessment: See Discharge Summary.
== END 2024-07-15 14:22 | DRG 689 ==
LOC: HO.ED 17:05 → HO.EDOVER 18:56 → HO.IMC 07-12 08:09
PROVIDERS: Student in an Organized Health Care Education/Training Program; Admitting Provider Physician Assistant; Emergency Provider Student in an Organized Health Care Education/Training Program; PCP Internal Medicine; Visit Provider Family Medicine
DX: N39.0 Urinary tract infection, site not specified (principal); G93.41 Metabolic encephalopathy; E87.0 Hyperosmolality and hypernatremia; F03.93 Unspecified dementia, unspecified severity, with mood disturbance; I48.92 Unspecified atrial flutter; Z16.11 Resistance to penicillins; Z16.29 Resistance to other single specified antibiotic; B96.20 Unspecified Escherichia coli [E. coli] as the cause of diseases classified elsewhere; D69.6 Thrombocytopenia, unspecified; I48.91 Unspecified atrial fibrillation; N18.30 Chronic kidney disease, stage 3 unspecified; E87.6 Hypokalemia; D53.9 Nutritional anemia, unspecified; Z66 Do not resuscitate; E78.5 Hyperlipidemia, unspecified; R63.4 Abnormal weight loss; Z68.22 Body mass index [BMI] 22.0-22.9, adult; Z20.822 Contact with and (suspected) exposure to COVID-19; Z79.01 Long term (current) use of anticoagulants; Z79.899 Other long term (current) drug therapy
CPT/HCPCS: 0241U; 36415; 70450; 71045; 72125; 80048; 80076; 81001; 82140; 82550; 82607; 82746; 82803; 83605; 83690; 83735; 84295; 84439; 84443; 84484; 85025; 85610; 85730; 86850; 86900; 86901; 87040; 87086; 87088; 87186; 92526; 92610; 93005; 93306; 99285; J0131; J0461; J0696; J1650; J3480; J7120; Q9957

== ENCOUNTER → 2024-07-11 14:11 | Outpatient (BNV) | payer MEDICARE, SELFPAY | PROVIDERS: Emergency Provider Student in an Organized Health Care Education/Training Program; PCP Internal Medicine; Visit Provider Radiology Diagnostic Radiology | DX: I70.0 Atherosclerosis of aorta (principal); R90.82 White matter disease, unspecified; M99.61 Osseous and subluxation stenosis of intervertebral foramina of cervical region | CPT/HCPCS: 70450; 71045; 72125 ==

== ENCOUNTER 2024-07-11 18:42 | Outpatient (BNV) | payer MEDICARE, MEDICAID, SELFPAY | END 2024-07-12 07:00 | PROVIDERS: Admitting Provider Physician Assistant; Emergency Provider Student in an Organized Health Care Education/Training Program; PCP Internal Medicine; Visit Provider Internal Medicine | DX: I42.2 Other hypertrophic cardiomyopathy (principal); I35.1 Nonrheumatic aortic (valve) insufficiency; I37.1 Nonrheumatic pulmonary valve insufficiency; I34.0 Nonrheumatic mitral (valve) insufficiency; I48.91 Unspecified atrial fibrillation; I51.7 Cardiomegaly | CPT/HCPCS: 93306 ==

== ENCOUNTER → 2024-07-11 18:42 | Outpatient (BNV) | payer MEDICARE, MEDICAID, SELFPAY | PROVIDERS: Admitting Provider Physician Assistant; Emergency Provider Student in an Organized Health Care Education/Training Program; PCP Internal Medicine; Visit Provider Internal Medicine | DX: I48.92 Unspecified atrial flutter (principal); R00.1 Bradycardia, unspecified; E87.0 Hyperosmolality and hypernatremia; G93.41 Metabolic encephalopathy | CPT/HCPCS: 93010; 99223 ==

== ENCOUNTER → 2024-07-11 18:42 | Outpatient (BNV) | payer MEDICARE, MEDICAID, SELFPAY | PROVIDERS: Admitting Provider Physician Assistant; Emergency Provider Student in an Organized Health Care Education/Training Program; PCP Internal Medicine; Visit Provider Student in an Organized Health Care Education/Training Program | DX: E87.0 Hyperosmolality and hypernatremia (principal); I48.92 Unspecified atrial flutter; R00.1 Bradycardia, unspecified | CPT/HCPCS: 99223; 99232 ==

== ENCOUNTER → 2024-07-11 18:42 | Outpatient (BNV) | payer MEDICARE, MEDICAID, SELFPAY | PROVIDERS: Admitting Provider Physician Assistant; Emergency Provider Student in an Organized Health Care Education/Training Program; PCP Internal Medicine; Visit Provider Internal Medicine Hypertension Specialist | DX: E87.0 Hyperosmolality and hypernatremia (principal) | CPT/HCPCS: 99233 ==